=== PATIENT | female | born 1935 | race Caucasian/White ===

== ENCOUNTER 2017-01-26 02:31 | Inpatient (IN) ==
[2017-01-26] MEDS ORDERED: ALBUTEROL/IPRATROPIUM 3 ML NEB RESP TX STA (02:37)
[2017-01-26] MEDS ORDERED: FUROSEMIDE 40 MG/4 ML VIAL IV STA (02:47)
[2017-01-26] MEDS ORDERED: FUROSEMIDE 20 MG/2 ML VIAL ONE (02:49)
[2017-01-26] MEDS ORDERED: FUROSEMIDE 40 MG/4 ML VIAL ONE (02:49)
[2017-01-26] MEDS ORDERED: KETAMINE 500 MG/10 ML VIAL IV STA ×2 (02:52→03:59)
[2017-01-26] MEDS ORDERED: SUCCINYLCHOLINE 200 MG/10 ML VIAL IV STA (02:52)
[2017-01-26] MEDS ORDERED: SUCCINYLCHOLINE 200 MG/10 ML VIAL ONE (02:55)
[2017-01-26] MEDS ORDERED: KETAMINE 500 MG/10 ML VIAL ONE (02:55)
[2017-01-26] MEDS: DOPamine 800 MG/250 ML PREMIX IV SCH (03:40)
[2017-01-26] MEDS ORDERED: ROCURONIUM 100 MG/10 ML VIAL IV ONE (03:52)
[2017-01-26 03:54] LABS: Apearance,Urine Slightly Hazy (Clear); Bacteria,Urine Few /HPF (Few); Bilirubin,Urine Negative (Negative); Blood, Urine Negative (Negative); Glucose,Urine (UA) Negative (Negative); Hyaline Casts,Urine 14 /LPF (0-3); Ketones,Urine Negative (Negative); Mucus,Urine Occasional /LPF (Occasional); Nitrite,Urine Negative (Negative); Protein,Urine 30 MG/DL; RBC,Urine 2 /HPF (0-4); Squamous Epithelial Cell,Urine Occasional /HPF (0-10); Urine Color Yellow (Yellow); Urine Specific Gravity 1.013 (1.001-1.035); Urine Urobilinogen < 2.0 EU/DL (0.2-1.0); WBC,Urine 19 /HPF (0-6)
[2017-01-26] MEDS ORDERED: NOREPINEPHRINE 4 MG/4 ML VIAL IV ONE ×3 (04:01→10:18)
[2017-01-26 04:08] LABS: Basophils # 0.1 10*3/uL (0.0-0.2); Basophils % 0.6 % (0.0-0.8); Eosinophils % 0.1 % (0.00-10.9); Hematocrit 34.4 VOL% (35.7-47.0); Hemoglobin 10.4 GM/DL (12.0-16.0); Immature Granulocytes % 1.3 %; Immature Granulocytes Absolute 0.14 #; Lymphocytes # 0.5 10*3/uL (1.4-4.0); Lymphocytes % 4.6 % (21.3-54.2); Mean Corpuscular HGB Conc 30.2 GM/DL (32-36); Mean Corpuscular Hemoglobin 25 PG (27-34); Mean Corpuscular Volume 83.9 FL (87-102); Mean Platelet Volume 12.3 FL (9.6-12.0); Monocytes # 0.8 10*3/uL (0.11-0.8); Monocytes % 7.2 % (1.7-12.7); Neutrophils # 9.3 10*3/uL (1.4-7.4); Neutrophils % 86.2 % (38.7-73.9); Platelet Count 181 T/CUMM (130-400); Red Cell Distribution Width 17.2 % (9.3-17.3); White Blood Count 10.8 T/CUMM (4-12)
[2017-01-26] MEDS: NOREPINEPHRINE 4 MG in SODIUM CHLORIDE 0.9% 246 ML IV SCH ×2 (04:10→10:30)
[2017-01-26] MEDS ORDERED: MIDAZOLAM 100 MG in SODIUM CHLORIDE 0.9% 80 ML IV SCH (04:30)
[2017-01-26 04:32] LABS: Albumin 3.3 G/DL (3.4-5.0); Bilirubin,Total 0.7 MG/DL (0.2-1.0); Calcium 9.5 MG/DL (8.5-10.1); Potassium 5.7 MMOL/L (3.5-5.1); Total Protein 6.5 G/DL (6.4-8.3); Troponin I Only 0.037 NG/ML (0.00-0.045)
[2017-01-26 06:30] LABS: Burr Cells 2+
[2017-01-26 06:58] LABS: Pt O2 Delivery Device Ventilator
[2017-01-26 07:00] LABS: ABG HCO3 20.7 MMOL/L (20-26); ABG Oxygen Saturation 99.6 % (95-100); ABG PCO2 63.6 MM HG (35-48); ABG PO2 341.3 MM HG (80-95); ABG TCO2 22.6 MMOL/L (23-27)
[2017-01-26] MEDS ORDERED: CEFEPIME 1,000 MG in SODIUM CHLORIDE 0.9% 100 ML IV SCH (07:00)
[2017-01-26] MEDS ORDERED: AZITHROMYCIN 500 MG VIAL IV ONE (07:09)
[2017-01-26] MEDS: AZITHROMYCIN INJ 500 MG in SODIUM CHLORIDE 0.9% 250 ML IV SCH (07:20)
[2017-01-26] MEDS ORDERED: SODIUM POLYSTYRENE SULFATE 15 GM/60 ML BOTTLE PO ONE (10:16)
[2017-01-26] MEDS ORDERED: CEFEPIME 500 MG in SODIUM CHLORIDE 0.9% 50 ML IV SCH (11:00)
[2017-01-26] MEDS ORDERED: CEFEPIME 500 MG in SYRINGE 1 EACH IV SCH (12:00)
[2017-01-26] MEDS: PROPOFOL 1,000 MG/100 ML BOTTLE IV SCH (12:33)
[2017-01-26] MEDS ORDERED: PROPOFOL 1,000 MG/100 ML BOTTLE IV ONE (12:43)
[2017-01-26] MEDS: SODIUM BICARB INJ 50 MEQ in SODIUM CHLORIDE 0.45% 1,000 ML IV SCH ×2 (15:03→23:49)
[2017-01-26] MEDS: CEFEPIME 500 MG in SODIUM CHLORIDE 0.9% 50 ML IV SCH (15:04)
[2017-01-27] MEDS: CEFEPIME 500 MG in SODIUM CHLORIDE 0.9% 50 ML IV SCH ×2 (01:14→13:35)
[2017-01-27] MEDS: SODIUM BICARB INJ 50 MEQ in SODIUM CHLORIDE 0.45% 1,000 ML IV SCH ×2 (01:14→14:31)
[2017-01-27] MEDS: PROPOFOL 1,000 MG/100 ML BOTTLE IV SCH ×2 (01:15→15:30)
[2017-01-27 04:15] LABS: ABG Base Excess -2.2 MMOL/L (-2.5-2.5); ABG HCO3 21.6 MMOL/L (20-26); ABG Oxygen Saturation 98.6 % (95-100); ABG PCO2 33.2 MM HG (35-48); ABG PH 7.431 (7.35-7.45); ABG PO2 139.2 MM HG (80-95); ABG TCO2 22.6 MMOL/L (23-27); Allen Test Positive; Pt O2 Delivery Device Ventilator
[2017-01-27] MEDS: DOPamine 800 MG/250 ML PREMIX IV SCH (05:02)
[2017-01-27] MEDS: NOREPINEPHRINE 4 MG in SODIUM CHLORIDE 0.9% 246 ML IV SCH (05:02)
[2017-01-27 05:51] LABS: Calcium 8.4 MG/DL (8.5-10.1); Osmolality,Calculated 289.3 MOS/KG (273-304); Potassium 3.9 MMOL/L (3.5-5.1)
[2017-01-27] MEDS: AZITHROMYCIN INJ 500 MG in SODIUM CHLORIDE 0.9% 250 ML IV SCH (06:19)
[2017-01-27 12:10] LABS: Troponin I Only 0.044 NG/ML (0.00-0.045)
[2017-01-27] MEDS: ENOXAPARIN 30 MG/0.3 ML SYRINGE SUBCUT SCH (13:35)
[2017-01-27] MEDS: ASPIRIN EC 81 MG TABLET PO SCH (13:35)
[2017-01-28] MEDS: PROPOFOL 1,000 MG/100 ML BOTTLE IV SCH ×2 (00:03→13:18)
[2017-01-28] MEDS: CEFEPIME 500 MG in SODIUM CHLORIDE 0.9% 50 ML IV SCH ×2 (00:11→12:30)
[2017-01-28] MEDS: SODIUM BICARB INJ 50 MEQ in SODIUM CHLORIDE 0.45% 1,000 ML IV SCH (04:30)
[2017-01-28] MEDS: DOPamine 800 MG/250 ML PREMIX IV SCH (04:32)
[2017-01-28] MEDS: NOREPINEPHRINE 4 MG in SODIUM CHLORIDE 0.9% 246 ML IV SCH (04:33)
[2017-01-28 04:35] LABS: ABG Base Excess 1.9 MMOL/L (-2.5-2.5); ABG HCO3 26.1 MMOL/L (20-26); ABG Oxygen Saturation 98.7 % (95-100); ABG PCO2 33.7 MM HG (35-48); ABG PH 7.481 (7.35-7.45); ABG TCO2 23.3 MMOL/L (23-27); Allen Test Positive; Pt O2 Delivery Device Ventilator
[2017-01-28 04:47] LABS: Basophils # 0.1 10*3/uL (0.0-0.2); Basophils % 0.5 % (0.0-0.8); Eosinophils % 0.2 % (0.00-10.9); Hematocrit 28.5 VOL% (35.7-47.0); Hemoglobin 9.2 GM/DL (12.0-16.0); Immature Granulocytes % 0.5 %; Immature Granulocytes Absolute 0.06 #; Lymphocytes # 1.4 10*3/uL (1.4-4.0); Lymphocytes % 12.3 % (21.3-54.2); Mean Corpuscular HGB Conc 32.3 GM/DL (32-36); Mean Corpuscular Hemoglobin 25 PG (27-34); Mean Corpuscular Volume 78.5 FL (87-102); Mean Platelet Volume 12.5 FL (9.6-12.0); Monocytes % 9.4 % (1.7-12.7); Neutrophils # 8.5 10*3/uL (1.4-7.4); Neutrophils % 77.1 % (38.7-73.9); Platelet Count 134 T/CUMM (130-400); Red Blood Count 3.63 MC/CUMM (3.8-5.5); Red Cell Distribution Width 17.2 % (9.3-17.3)
[2017-01-28] MEDS: AZITHROMYCIN INJ 500 MG in SODIUM CHLORIDE 0.9% 250 ML IV SCH (06:24)
[2017-01-28] MEDS: ASPIRIN EC 81 MG TABLET PO SCH (09:17)
[2017-01-28 09:30] LABS: Calcium 7.9 MG/DL (8.5-10.1); Magnesium 1.8 MG/DL (1.8-2.4); Risk Ratio 3.3; VLDL CHOLESTEROL 20.2 MG/DL
[2017-01-28 09:32] LABS: Potassium 2.5 MMOL/L (3.5-5.1)
[2017-01-28] MEDS ORDERED: ONDANSETRON 4 MG/2 ML VIAL ONE (10:11)
[2017-01-28] MEDS ORDERED: DEXTROSE 50% 25 GM/50 ML VIAL IV ONE ×2 (10:20→10:21)
[2017-01-28] MEDS: ONDANSETRON 4 MG/2 ML VIAL IV PRN (10:30)
[2017-01-28] MEDS ORDERED: POTASSIUM CHLORIDE 20 MEQ TABLET PO ONE (10:41)
[2017-01-28] MEDS ORDERED: POTASSIUM CHLORIDE INJ 10 MEQ in DEXTROSE 5% 1,000 ML IV SCH (12:00)
[2017-01-28] MEDS ORDERED: POTASSIUM CHLORIDE IV SCH (12:30)
[2017-01-28] MEDS ORDERED: SODIUM BICARB IV SCH (12:30)
[2017-01-28] MEDS ORDERED: [UNRECOGNIZED DRUG - OTHER] IV SCH (12:30)
[2017-01-28] MEDS: ENOXAPARIN 30 MG/0.3 ML SYRINGE SUBCUT SCH (12:35)
[2017-01-28] MEDS ORDERED: MAGNESIUM SULF RIDER 2 GM in PREMIX 1 EACH IV ONE (12:53)
[2017-01-28] MEDS ORDERED: MAGNESIUM SULF RIDER 2 GM in PREMIX 1 EACH IV PRN (14:15)
[2017-01-28] MEDS: ATORVASTATIN 10 MG TABLET PO SCH (20:56)
[2017-01-29] MEDS: CEFEPIME 500 MG in SODIUM CHLORIDE 0.9% 50 ML IV SCH ×2 (00:22→11:41)
[2017-01-29] MEDS: NOREPINEPHRINE 4 MG in SODIUM CHLORIDE 0.9% 246 ML IV SCH (03:05)
[2017-01-29] MEDS: PROPOFOL 1,000 MG/100 ML BOTTLE IV SCH ×2 (03:05→11:41)
[2017-01-29] MEDS: DOPamine 800 MG/250 ML PREMIX IV SCH (03:05)
[2017-01-29 03:16] LABS: ABG Base Excess 4.5 MMOL/L (-2.5-2.5); ABG HCO3 28.5 MMOL/L (20-26); ABG Oxygen Saturation 99.6 % (95-100); ABG PCO2 36.3 MM HG (35-48); ABG PH 7.493 (7.35-7.45); ABG TCO2 25.4 MMOL/L (23-27)
[2017-01-29 05:26] LABS: Basophils % 0.3 % (0.0-0.8); Eosinophils % 0.4 % (0.00-10.9); Hematocrit 29.4 VOL% (35.7-47.0); Hemoglobin 9.3 GM/DL (12.0-16.0); Immature Granulocytes % 0.4 %; Immature Granulocytes Absolute 0.04 #; Lymphocytes % 11.3 % (21.3-54.2); Mean Corpuscular HGB Conc 31.6 GM/DL (32-36); Mean Corpuscular Hemoglobin 25 PG (27-34); Mean Corpuscular Volume 79.7 FL (87-102); Mean Platelet Volume 11.8 FL (9.6-12.0); Monocytes % 11.2 % (1.7-12.7); Neutrophils % 76.4 % (38.7-73.9); Platelet Count 125 T/CUMM (130-400); Red Blood Count 3.69 MC/CUMM (3.8-5.5); Red Cell Distribution Width 17.3 % (9.3-17.3); White Blood Count 9.2 T/CUMM (4-12)
[2017-01-29 05:55] LABS: Phosphorous 2.1 MG/DL (2.5-4.9)
[2017-01-29] MEDS ORDERED: DEXT 5% NACL 0.45% KCL 20 MEQ 20 MEQ/1,000 ML BAG IV SCH (06:00)
[2017-01-29] MEDS: AZITHROMYCIN INJ 500 MG in SODIUM CHLORIDE 0.9% 250 ML IV SCH (06:09)
[2017-01-29 06:19] LABS: Calcium 8.1 MG/DL (8.5-10.1); Magnesium 2.3 MG/DL (1.8-2.4); Osmolality,Calculated 295.1 MOS/KG (273-304); Potassium 2.7 MMOL/L (3.5-5.1)
[2017-01-29] MEDS: POTASSIUM CHLORIDE RIDER 20 MEQ in PREMIX 1 EACH IV PRN ×2 (08:39→10:55)
[2017-01-29] MEDS: ASPIRIN EC 81 MG TABLET PO SCH (08:40)
[2017-01-29] MEDS: ENOXAPARIN 30 MG/0.3 ML SYRINGE SUBCUT SCH (12:56)
[2017-01-29] MEDS: POTASSIUM CHLORIDE RIDER 10 MEQ in PREMIX 1 EACH IV PRN (12:56)
[2017-01-29] MEDS ORDERED: POTASSIUM CHLORIDE 20 MEQ TABLET PO ONE (15:53)
[2017-01-29] MEDS ORDERED: DEXTROSE 50% 25 GM/50 ML VIAL IV PRN (15:59)
[2017-01-29] MEDS ORDERED: GLUCAGON 1 MG VIAL IM PRN (16:00)
[2017-01-29] MEDS ORDERED: FUROSEMIDE 40 MG/4 ML VIAL IV ONE (16:07)
[2017-01-29] MEDS: INSULIN REGULAR 100 UNIT/ML SUBCUT SCH (17:57)
[2017-01-29] MEDS: ATORVASTATIN 10 MG TABLET PO SCH (21:24)
[2017-01-30] MEDS: INSULIN REGULAR 100 UNIT/ML SUBCUT SCH ×4 (00:47→18:02)
[2017-01-30] MEDS: CEFEPIME 500 MG in SODIUM CHLORIDE 0.9% 50 ML IV SCH ×2 (00:47→13:04)
[2017-01-30 03:31] LABS: ABG HCO3 28.5 MMOL/L (20-26); ABG Oxygen Saturation 98.7 % (95-100); ABG PCO2 37.9 MM HG (35-48); ABG PH 7.494 (7.35-7.45); ABG PO2 153.5 MM HG (80-95); ABG TCO2 29.7 MMOL/L (23-27); Allen Test Positive; Pt O2 Delivery Device Ventilator
[2017-01-30 05:54] LABS: Basophils % 0.5 % (0.0-0.8); Eosinophils # 0.1 10*3/uL (0.0-0.87); Eosinophils % 1.6 % (0.00-10.9); Hematocrit 29.6 VOL% (35.7-47.0); Hemoglobin 9.4 GM/DL (12.0-16.0); Immature Granulocytes % 0.5 %; Immature Granulocytes Absolute 0.04 #; Lymphocytes # 1.4 10*3/uL (1.4-4.0); Lymphocytes % 17.6 % (21.3-54.2); Mean Corpuscular HGB Conc 31.8 GM/DL (32-36); Mean Corpuscular Hemoglobin 26 PG (27-34); Mean Corpuscular Volume 80.2 FL (87-102); Monocytes # 1.1 10*3/uL (0.11-0.8); Monocytes % 13.4 % (1.7-12.7); Neutrophils # 5.4 10*3/uL (1.4-7.4); Neutrophils % 66.4 % (38.7-73.9); Platelet Count 134 T/CUMM (130-400); Red Blood Count 3.69 MC/CUMM (3.8-5.5); Red Cell Distribution Width 17.2 % (9.3-17.3); White Blood Count 8.1 T/CUMM (4-12)
[2017-01-30 06:22] LABS: Calcium 8.5 MG/DL (8.5-10.1); Magnesium 1.9 MG/DL (1.8-2.4); Osmolality,Calculated 293.8 MOS/KG (273-304); Potassium 3.7 MMOL/L (3.5-5.1)
[2017-01-30] MEDS: PROPOFOL 1,000 MG/100 ML BOTTLE IV SCH (07:00)
[2017-01-30] MEDS: POTASSIUM CHLORIDE RIDER 20 MEQ in PREMIX 1 EACH IV PRN (07:01)
[2017-01-30] MEDS: AZITHROMYCIN INJ 500 MG in SODIUM CHLORIDE 0.9% 250 ML IV SCH (07:01)
[2017-01-30] MEDS: ASPIRIN EC 81 MG TABLET PO SCH (09:02)
[2017-01-30] MEDS: NOREPINEPHRINE 4 MG in SODIUM CHLORIDE 0.9% 246 ML IV SCH (09:03)
[2017-01-30] MEDS: DOPamine 800 MG/250 ML PREMIX IV SCH (09:04)
[2017-01-30] MEDS: ONDANSETRON 4 MG/2 ML VIAL IV PRN ×2 (10:21→15:34)
[2017-01-30] MEDS: ENOXAPARIN 30 MG/0.3 ML SYRINGE SUBCUT SCH (12:16)
[2017-01-30] MEDS: hydrALAZINE 25 MG TABLET PO SCH ×2 (15:34→21:01)
[2017-01-30] MEDS: ATORVASTATIN 10 MG TABLET PO SCH (21:01)
[2017-01-31] MEDS: INSULIN REGULAR 100 UNIT/ML SUBCUT SCH ×4 (00:51→18:45)
[2017-01-31] MEDS: CEFEPIME 500 MG in SODIUM CHLORIDE 0.9% 50 ML IV SCH (00:52)
[2017-01-31 04:55] LABS: Basophils % 0.5 % (0.0-0.8); Eosinophils # 0.2 10*3/uL (0.0-0.87); Hemoglobin 8.9 GM/DL (12.0-16.0); Immature Granulocytes % 0.5 %; Immature Granulocytes Absolute 0.04 #; Lymphocytes # 1.3 10*3/uL (1.4-4.0); Lymphocytes % 17.2 % (21.3-54.2); Mean Corpuscular HGB Conc 30.7 GM/DL (32-36); Mean Corpuscular Hemoglobin 25 PG (27-34); Mean Corpuscular Volume 82.2 FL (87-102); Mean Platelet Volume 12.5 FL (9.6-12.0); Monocytes # 1.1 10*3/uL (0.11-0.8); Monocytes % 14.5 % (1.7-12.7); Neutrophils % 65.3 % (38.7-73.9); Platelet Count 122 T/CUMM (130-400); Red Blood Count 3.53 MC/CUMM (3.8-5.5); Red Cell Distribution Width 17.2 % (9.3-17.3); White Blood Count 7.7 T/CUMM (4-12)
[2017-01-31 05:46] LABS: Calcium 8.1 MG/DL (8.5-10.1); Magnesium 1.7 MG/DL (1.8-2.4); Osmolality,Calculated 292.1 MOS/KG (273-304); Potassium 3.8 MMOL/L (3.5-5.1)
[2017-01-31] MEDS: DOPamine 800 MG/250 ML PREMIX IV SCH (05:57)
[2017-01-31] MEDS: NOREPINEPHRINE 4 MG in SODIUM CHLORIDE 0.9% 246 ML IV SCH (05:57)
[2017-01-31] MEDS: PROPOFOL 1,000 MG/100 ML BOTTLE IV SCH (06:26)
[2017-01-31] MEDS: AZITHROMYCIN INJ 500 MG in SODIUM CHLORIDE 0.9% 250 ML IV SCH (06:26)
[2017-01-31 07:22] LABS: ABG Base Excess 5.4 MMOL/L (-2.5-2.5); ABG HCO3 29.8 MMOL/L (20-26); ABG Oxygen Saturation 98.8 % (95-100); ABG PCO2 42.8 MM HG (35-48); ABG TCO2 31.1 MMOL/L (23-27)
[2017-01-31] MEDS ORDERED: FUROSEMIDE 40 MG/4 ML VIAL IV ONE (08:09)
[2017-01-31] MEDS: ASPIRIN EC 81 MG TABLET PO SCH (08:46)
[2017-01-31] MEDS: hydrALAZINE 25 MG TABLET PO SCH ×3 (08:46→21:32)
[2017-01-31] MEDS: CEFEPIME 1,000 MG in SYRINGE 1 EACH IV SCH ×2 (11:14→18:46)
[2017-01-31] MEDS: ISOSORBIDE MONONITRATE 30 MG TABLET PO SCH (11:22)
[2017-01-31] MEDS: ENOXAPARIN 30 MG/0.3 ML SYRINGE SUBCUT SCH (15:05)
[2017-01-31] MEDS: ATORVASTATIN 10 MG TABLET PO SCH (21:32)
[2017-01-31] MEDS: ZALEPLON 5 MG CAPSULE PO PRN (21:50)
[2017-02-01] MEDS: INSULIN REGULAR 100 UNIT/ML SUBCUT SCH ×2 (00:45→07:27)
[2017-02-01] MEDS: CEFEPIME 1,000 MG in SYRINGE 1 EACH IV SCH ×3 (02:50→17:50)
[2017-02-01 03:07] LABS: Basophils # 0.1 10*3/uL (0.0-0.2); Basophils % 0.6 % (0.0-0.8); Eosinophils # 0.3 10*3/uL (0.0-0.87); Eosinophils % 3.4 % (0.00-10.9); Hematocrit 27.8 VOL% (35.7-47.0); Hemoglobin 8.4 GM/DL (12.0-16.0); Immature Granulocytes % 0.5 %; Immature Granulocytes Absolute 0.04 #; Lymphocytes # 1.8 10*3/uL (1.4-4.0); Lymphocytes % 22.1 % (21.3-54.2); Mean Corpuscular HGB Conc 30.2 GM/DL (32-36); Mean Corpuscular Hemoglobin 25 PG (27-34); Mean Corpuscular Volume 82.7 FL (87-102); Mean Platelet Volume 12.1 FL (9.6-12.0); Monocytes % 12.6 % (1.7-12.7); Neutrophils % 60.8 % (38.7-73.9); Platelet Count 120 T/CUMM (130-400); Red Blood Count 3.36 MC/CUMM (3.8-5.5); Red Cell Distribution Width 17.2 % (9.3-17.3); White Blood Count 8.2 T/CUMM (4-12)
[2017-02-01 03:31] LABS: Calcium 8.4 MG/DL (8.5-10.1); Osmolality,Calculated 284.3 MOS/KG (273-304); Potassium 3.4 MMOL/L (3.5-5.1)
[2017-02-01] MEDS: NOREPINEPHRINE 4 MG in SODIUM CHLORIDE 0.9% 246 ML IV SCH (05:04)
[2017-02-01] MEDS: DOPamine 800 MG/250 ML PREMIX IV SCH (05:04)
[2017-02-01] MEDS: POTASSIUM CHLORIDE RIDER 20 MEQ in PREMIX 1 EACH IV PRN (06:24)
[2017-02-01] MEDS: POTASSIUM CHLORIDE RIDER 10 MEQ in PREMIX 1 EACH IV PRN (08:31)
[2017-02-01] MEDS: ASPIRIN EC 81 MG TABLET PO SCH (08:37)
[2017-02-01] MEDS: hydrALAZINE 25 MG TABLET PO SCH ×3 (08:37→22:08)
[2017-02-01] MEDS: ISOSORBIDE MONONITRATE 30 MG TABLET PO SCH (08:38)
[2017-02-01] MEDS: POTASSIUM CHLORIDE 10 MEQ TABLET PO SCH ×2 (10:27→22:08)
[2017-02-01] MEDS: FUROSEMIDE 20 MG TABLET PO SCH (10:27)
[2017-02-01] MEDS ORDERED: POTASSIUM CHLORIDE 20 MEQ TABLET PO ONE (10:53)
[2017-02-01 11:19] LABS: % Iron Saturation 11.9 % (18-50); Ferritin 75.1 ng/ml (8-252)
[2017-02-01] MEDS ORDERED: CELECOXIB 200 MG CAPSULE PO SCH (16:14)
[2017-02-01] MEDS: ENOXAPARIN 30 MG/0.3 ML SYRINGE SUBCUT SCH (16:20)
[2017-02-01] MEDS: PANTOPRAZOLE 40 MG TABLET PO SCH (16:20)
[2017-02-01] MEDS: PROPOFOL 1,000 MG/100 ML BOTTLE IV SCH (18:27)
[2017-02-01] MEDS: ONDANSETRON 4 MG/2 ML VIAL IV PRN (20:30)
[2017-02-01] MEDS: ATORVASTATIN 10 MG TABLET PO SCH (22:08)
[2017-02-01] MEDS: CELECOXIB 200 MG CAPSULE PO SCH (22:08)
[2017-02-01] MEDS: ZALEPLON 5 MG CAPSULE PO PRN (22:08)
[2017-02-02] MEDS: CEFEPIME 1,000 MG in SYRINGE 1 EACH IV SCH ×3 (03:21→22:47)
[2017-02-02 03:34] LABS: ABG Base Excess 8.1 MMOL/L (-2.5-2.5); ABG HCO3 31.9 MMOL/L (20-26); ABG Oxygen Saturation 99.3 % (95-100); ABG PCO2 48.4 MM HG (35-48); ABG PH 7.445 (7.35-7.45); ABG TCO2 30.9 MMOL/L (23-27)
[2017-02-02] MEDS: NOREPINEPHRINE 4 MG in SODIUM CHLORIDE 0.9% 246 ML IV SCH (03:57)
[2017-02-02 05:21] LABS: Basophils # 0.1 10*3/uL (0.0-0.2); Basophils % 0.7 % (0.0-0.8); Eosinophils # 0.2 10*3/uL (0.0-0.87); Eosinophils % 2.4 % (0.00-10.9); Hematocrit 26.4 VOL% (35.7-47.0); Hemoglobin 8.2 GM/DL (12.0-16.0); Immature Granulocytes % 0.6 %; Immature Granulocytes Absolute 0.05 #; Lymphocytes # 1.9 10*3/uL (1.4-4.0); Lymphocytes % 21.9 % (21.3-54.2); Mean Corpuscular HGB Conc 31.1 GM/DL (32-36); Mean Corpuscular Hemoglobin 25 PG (27-34); Mean Corpuscular Volume 81.2 FL (87-102); Mean Platelet Volume 12.4 FL (9.6-12.0); Monocytes # 1.2 10*3/uL (0.11-0.8); Monocytes % 13.6 % (1.7-12.7); Neutrophils # 5.2 10*3/uL (1.4-7.4); Neutrophils % 60.8 % (38.7-73.9); Platelet Count 120 T/CUMM (130-400); Red Blood Count 3.25 MC/CUMM (3.8-5.5); White Blood Count 8.5 T/CUMM (4-12)
[2017-02-02 05:38] LABS: Calcium 8.3 MG/DL (8.5-10.1); Magnesium 1.3 MG/DL (1.8-2.4); Osmolality,Calculated 279.5 MOS/KG (273-304); Potassium 3.7 MMOL/L (3.5-5.1)
[2017-02-02] MEDS ORDERED: KETOROLAC 30 MG/1 ML VIAL IV ONE (09:45)
[2017-02-02] MEDS: PANTOPRAZOLE 40 MG TABLET PO SCH (10:07)
[2017-02-02] MEDS: FUROSEMIDE 20 MG TABLET PO SCH ×2 (10:07→16:15)
[2017-02-02] MEDS: ASPIRIN EC 81 MG TABLET PO SCH (10:08)
[2017-02-02] MEDS: CELECOXIB 200 MG CAPSULE PO SCH ×2 (10:08→22:47)
[2017-02-02] MEDS: hydrALAZINE 25 MG TABLET PO SCH ×3 (10:08→22:47)
[2017-02-02] MEDS: ISOSORBIDE MONONITRATE 30 MG TABLET PO SCH (10:08)
[2017-02-02] MEDS: POTASSIUM CHLORIDE 10 MEQ TABLET PO SCH ×2 (10:08→22:47)
[2017-02-02] MEDS: MAGNESIUM SULF RIDER 4 GM in PREMIX 1 EACH IV PRN (13:31)
[2017-02-02] MEDS: IRON (CARBONYL) 45 MG TABLET PO SCH ×2 (14:00→22:47)
[2017-02-02] MEDS: ENOXAPARIN 30 MG/0.3 ML SYRINGE SUBCUT SCH (14:17)
[2017-02-02] MEDS: ZINC OXIDE PASTE 113 GM TUBE TOP SCH (22:00)
[2017-02-02] MEDS: MAGNESIUM CHLORIDE 64 MG TABLET PO SCH (22:47)
[2017-02-02] MEDS: ATORVASTATIN 10 MG TABLET PO SCH (22:47)
[2017-02-03 05:27] LABS: Basophils # 0.1 10*3/uL (0.0-0.2); Basophils % 0.6 % (0.0-0.8); Eosinophils # 0.2 10*3/uL (0.0-0.87); Eosinophils % 1.8 % (0.00-10.9); Immature Granulocytes % 0.5 %; Immature Granulocytes Absolute 0.05 #; Lymphocytes # 1.7 10*3/uL (1.4-4.0); Lymphocytes % 18.2 % (21.3-54.2); Mean Corpuscular HGB Conc 30.8 GM/DL (32-36); Mean Corpuscular Hemoglobin 25 PG (27-34); Monocytes # 1.1 10*3/uL (0.11-0.8); Monocytes % 11.6 % (1.7-12.7); Neutrophils # 6.3 10*3/uL (1.4-7.4); Neutrophils % 67.3 % (38.7-73.9); Platelet Count 143 T/CUMM (130-400); Red Blood Count 3.25 MC/CUMM (3.8-5.5); Red Cell Distribution Width 16.8 % (9.3-17.3); White Blood Count 9.4 T/CUMM (4-12)
[2017-02-03 05:46] LABS: Calcium 8.8 MG/DL (8.5-10.1); Osmolality,Calculated 275.8 MOS/KG (273-304); Potassium 3.8 MMOL/L (3.5-5.1)
[2017-02-03 06:30] LABS: Phosphorous 2.6 MG/DL (2.5-4.9); Prealbumin 10.1 MG/DL (20-40)
[2017-02-03] MEDS: NOREPINEPHRINE 4 MG in SODIUM CHLORIDE 0.9% 246 ML IV SCH (07:35)
[2017-02-03] MEDS: CEFEPIME 1,000 MG in SYRINGE 1 EACH IV SCH ×3 (07:35→21:23)
[2017-02-03] MEDS: FUROSEMIDE 20 MG TABLET PO SCH ×2 (09:57→16:33)
[2017-02-03] MEDS: CELECOXIB 200 MG CAPSULE PO SCH (09:57)
[2017-02-03] MEDS: PANTOPRAZOLE 40 MG TABLET PO SCH (09:57)
[2017-02-03] MEDS: ISOSORBIDE MONONITRATE 30 MG TABLET PO SCH (09:57)
[2017-02-03] MEDS: ASPIRIN EC 81 MG TABLET PO SCH (09:57)
[2017-02-03] MEDS: MAGNESIUM CHLORIDE 64 MG TABLET PO SCH ×2 (09:57→21:22)
[2017-02-03] MEDS: POTASSIUM CHLORIDE 10 MEQ TABLET PO SCH ×2 (09:57→21:23)
[2017-02-03] MEDS: hydrALAZINE 25 MG TABLET PO SCH ×3 (09:57→21:22)
[2017-02-03] MEDS: IRON (CARBONYL) 45 MG TABLET PO SCH ×2 (09:59→21:23)
[2017-02-03] MEDS: ZINC OXIDE PASTE 113 GM TUBE TOP SCH ×2 (10:01→21:23)
[2017-02-03] MEDS ORDERED: SODIUM CHLORIDE 0.9% 1,000 ML IV PRN (11:13)
[2017-02-03] MEDS ORDERED: MAGNESIUM SULF RIDER 4 GM in PREMIX 1 EACH IV PRN (11:44)
[2017-02-03] MEDS ORDERED: MAGNESIUM SULF RIDER 2 GM in PREMIX 1 EACH IV PRN (11:44)
[2017-02-03] MEDS: VALSARTAN 80 MG TABLET PO SCH (12:25)
[2017-02-03] MEDS: ONDANSETRON 4 MG/2 ML VIAL IV PRN (13:00)
[2017-02-03] MEDS ORDERED: VERAPAMIL 80 MG TABLET PO SCH (15:00)
[2017-02-03] MEDS: CARVEDILOL 6.25 MG TABLET PO SCH (21:23)
[2017-02-04] MEDS: CEFEPIME 1,000 MG in SYRINGE 1 EACH IV SCH (06:35)
[2017-02-04 07:28] LABS: Hematocrit 36.9 VOL% (35.7-47.0)
[2017-02-04 07:40] LABS: Hemoglobin 11.9 GM/DL (12.0-16.0)
[2017-02-04 09:55] LABS: Basophils # 0.1 10*3/uL (0.0-0.2); Basophils % 0.9 % (0.0-0.8); Eosinophils # 0.2 10*3/uL (0.0-0.87); Eosinophils % 1.7 % (0.00-10.9); Hematocrit 35.9 VOL% (35.7-47.0); Hemoglobin 11.5 GM/DL (12.0-16.0); Immature Granulocytes % 0.7 %; Immature Granulocytes Absolute 0.06 #; Lymphocytes # 1.4 10*3/uL (1.4-4.0); Lymphocytes % 16.1 % (21.3-54.2); Mean Corpuscular Hemoglobin 26 PG (27-34); Mean Corpuscular Volume 81.8 FL (87-102); Mean Platelet Volume 11.9 FL (9.6-12.0); Monocytes % 11.3 % (1.7-12.7); Neutrophils % 69.3 % (38.7-73.9); Platelet Count 170 T/CUMM (130-400); Red Blood Count 4.39 MC/CUMM (3.8-5.5); Red Cell Distribution Width 16.4 % (9.3-17.3); White Blood Count 8.7 T/CUMM (4-12)
[2017-02-04] MEDS: VALSARTAN 80 MG TABLET PO SCH (09:55)
[2017-02-04] MEDS: ISOSORBIDE MONONITRATE 30 MG TABLET PO SCH (09:55)
[2017-02-04] MEDS: hydrALAZINE 25 MG TABLET PO SCH ×3 (09:55→21:27)
[2017-02-04] MEDS: MAGNESIUM CHLORIDE 64 MG TABLET PO SCH ×2 (09:55→21:27)
[2017-02-04] MEDS: POTASSIUM CHLORIDE 10 MEQ TABLET PO SCH ×2 (09:55→21:27)
[2017-02-04] MEDS: IRON (CARBONYL) 45 MG TABLET PO SCH ×2 (09:56→21:29)
[2017-02-04] MEDS: CARVEDILOL 6.25 MG TABLET PO SCH ×2 (09:56→16:39)
[2017-02-04] MEDS: PANTOPRAZOLE 40 MG TABLET PO SCH (09:56)
[2017-02-04] MEDS: FUROSEMIDE 20 MG TABLET PO SCH ×2 (09:56→16:07)
[2017-02-04] MEDS: ASPIRIN EC 81 MG TABLET PO SCH (09:56)
[2017-02-04] MEDS: ZINC OXIDE PASTE 113 GM TUBE TOP SCH ×2 (09:57→21:27)
[2017-02-04 10:31] LABS: Calcium 8.9 MG/DL (8.5-10.1); Magnesium 1.7 MG/DL (1.8-2.4); Osmolality,Calculated 276.1 MOS/KG (273-304); Potassium 3.8 MMOL/L (3.5-5.1)
[2017-02-04] MEDS: ZALEPLON 5 MG CAPSULE PO PRN (21:27)
[2017-02-05 06:37] LABS: Calcium 9.2 MG/DL (8.5-10.1); Magnesium 1.4 MG/DL (1.8-2.4); Osmolality,Calculated 279.7 MOS/KG (273-304); Potassium 3.9 MMOL/L (3.5-5.1)
[2017-02-05] MEDS: MAGNESIUM CHLORIDE 64 MG TABLET PO SCH (08:57)
[2017-02-05] MEDS: FUROSEMIDE 20 MG TABLET PO SCH (08:57)
[2017-02-05] MEDS: CARVEDILOL 6.25 MG TABLET PO SCH (08:57)
[2017-02-05] MEDS: IRON (CARBONYL) 45 MG TABLET PO SCH (08:57)
[2017-02-05] MEDS: VALSARTAN 80 MG TABLET PO SCH (08:57)
[2017-02-05] MEDS: ISOSORBIDE MONONITRATE 30 MG TABLET PO SCH (08:57)
[2017-02-05] MEDS: PANTOPRAZOLE 40 MG TABLET PO SCH (08:58)
[2017-02-05] MEDS: POTASSIUM CHLORIDE 10 MEQ TABLET PO SCH (08:58)
[2017-02-05] MEDS: ASPIRIN EC 81 MG TABLET PO SCH (08:58)
[2017-02-05] MEDS: hydrALAZINE 25 MG TABLET PO SCH (08:58)
[2017-02-05] MEDS: ZINC OXIDE PASTE 113 GM TUBE TOP SCH (08:58)
[2017-02-05] MEDS: MAGNESIUM SULF RIDER 4 GM in PREMIX 1 EACH IV PRN (10:41)
[2017-02-05] MEDS ORDERED: ALBUTEROL/IPRATROPIUM 3 ML NEB RESP TX SCH (13:00)
[2017-02-05 14:03] VITALS: BP 128/67
== END 2017-02-05 15:40 | disposition swing bed (61) | DRG 207 ==
LOC: EDUNIT# → N.ED 02:31 → N.EDINP 05:10 → N.CC 09:55 → N.TELES 02-01 18:17
PROVIDERS: ADMIT Internal Medicine; ATTEND Internal Medicine

== ENCOUNTER 2018-06-25 09:30 | Inpatient (IN) ==
[2018-06-25] MEDS ORDERED: SODIUM CHLORIDE 0.9% 500 ML IV STA (10:00)
[2018-06-25 10:15] LABS: Apearance,Urine CLOUDY (Clear); Bacteria,Urine Many /HPF (Few); Bilirubin,Urine Negative (Negative); Blood, Urine Large mg/dL (Negative); Glucose,Urine (UA) Negative (Negative); Ketones,Urine Negative (Negative); Mucus,Urine Moderate /LPF (Occasional); Nitrite,Urine Positive (Negative); Protein,Urine 30 MG/DL; RBC,Urine 36 /HPF (0-4); Squamous Epithelial Cell,Urine Occasional /HPF (0-10); Urine Color Amber (Yellow); Urine Specific Gravity 1.015 (1.001-1.035); Urine Urobilinogen < 2.0 EU/DL (0.2-1.0); WBC,Urine 1757 /HPF (0-6)
[2018-06-25] MEDS ORDERED: cefTRIAXone 1,000 MG in SODIUM CHLORIDE 0.9% 100 ML IV STA (10:23)
[2018-06-25 10:31] LABS: Basophils % 0.6 % (0.0-0.8); Eosinophils # 0.1 10*3/uL (0.0-0.87); Hematocrit 30.6 VOL% (35.7-47.0); Hemoglobin 9.5 GM/DL (12.0-16.0); Immature Granulocytes % 0.4 %; Immature Granulocytes Absolute 0.03 #; Lymphocytes # 2.1 10*3/uL (1.4-4.0); Lymphocytes % 29.7 % (21.3-54.2); Mean Corpuscular Volume 97.8 FL (87-102); Monocytes % 9.4 % (1.7-12.7); Neutrophils % 57.9 % (38.7-73.9); Platelet Count 116 T/CUMM (130-400); Red Blood Count 3.13 MC/CUMM (3.8-5.5); Red Cell Distribution Width 13.4 % (9.3-17.3); White Blood Count 7.1 T/CUMM (4-12)
[2018-06-25 10:47] LABS: Calcium 8.9 MG/DL (8.5-10.1); Osmolality,Calculated 291.7 MOS/KG (273-304)
[2018-06-25] MEDS ORDERED: ONDANSETRON 4 MG/2 ML VIAL IV PRN (14:04)
[2018-06-25] MEDS: SODIUM CHLORIDE 0.9% 1,000 ML IV SCH (15:03)
[2018-06-26] MEDS: SODIUM CHLORIDE 0.9% 1,000 ML IV SCH ×2 (04:06→15:27)
[2018-06-26 05:41] LABS: Basophils % 0.7 % (0.0-0.8); Eosinophils # 0.1 10*3/uL (0.0-0.87); Eosinophils % 1.5 % (0.00-10.9); Hematocrit 29.9 VOL% (35.7-47.0); Hemoglobin 9.1 GM/DL (12.0-16.0); Immature Granulocytes % 0.5 %; Immature Granulocytes Absolute 0.03 #; Lymphocytes % 33.3 % (21.3-54.2); Mean Corpuscular HGB Conc 30.4 GM/DL (32-36); Mean Corpuscular Volume 99.7 FL (87-102); Mean Platelet Volume 12.4 FL (9.6-12.0); Monocytes % 10.6 % (1.7-12.7); Neutrophils % 53.4 % (38.7-73.9); Platelet Count 100 T/CUMM (130-400); Red Cell Distribution Width 13.3 % (9.3-17.3); White Blood Count 5.9 T/CUMM (4-12)
[2018-06-26 06:22] LABS: Calcium 8.4 MG/DL (8.5-10.1)
[2018-06-26 06:23] LABS: Osmolality,Calculated 285.7 MOS/KG (273-304); Risk Ratio 2.11; Thyroid Stimulating Hormone 0.327 uIU/ml (0.358-3.74)
[2018-06-26] MEDS: cefTRIAXone 1,000 MG in SYRINGE 1 EACH IV SCH (09:23)
[2018-06-26] MEDS: PANTOPRAZOLE 40 MG TABLET PO SCH (09:23)
[2018-06-26] MEDS: IPRATROPIUM 500 MCG/2.5 ML NEB RESP TX SCH ×2 (15:00→19:37)
[2018-06-26] MEDS: CYANOCOBALAMIN 1000 MCG/1 ML VIAL SUBCUT SCH (15:26)
[2018-06-26] MEDS: CHOLESTYRAMINE/ASPARTAME 4 GM PACK PO SCH (18:09)
[2018-06-26] MEDS: CARVEDILOL 6.25 MG TABLET PO SCH (18:09)
[2018-06-26] MEDS: DOCUSATE SODIUM 100 MG CAPSULE PO SCH (22:06)
[2018-06-26] MEDS: traZODone 50 MG TABLET PO SCH (22:06)
[2018-06-26] MEDS: DONEPEZIL 10 MG TABLET PO SCH (22:06)
[2018-06-26] MEDS: buPROPion 75 MG TABLET PO SCH (22:06)
[2018-06-26] MEDS: MAGNESIUM CHLORIDE 64 MG TABLET PO SCH (22:06)
[2018-06-27] MEDS: SODIUM CHLORIDE 0.9% 1,000 ML IV SCH ×2 (02:36→17:49)
[2018-06-27 05:51] LABS: Basophils # 0.1 10*3/uL (0.0-0.2); Basophils % 0.8 % (0.0-0.8); Eosinophils # 0.1 10*3/uL (0.0-0.87); Eosinophils % 2.2 % (0.00-10.9); Hematocrit 30.2 VOL% (35.7-47.0); Hemoglobin 9.2 GM/DL (12.0-16.0); Immature Granulocytes % 0.3 %; Immature Granulocytes Absolute 0.02 #; Lymphocytes # 2.1 10*3/uL (1.4-4.0); Lymphocytes % 33.4 % (21.3-54.2); Mean Corpuscular HGB Conc 30.5 GM/DL (32-36); Monocytes % 10.8 % (1.7-12.7); Neutrophils % 52.5 % (38.7-73.9); Platelet Count 102 T/CUMM (130-400); Red Blood Count 3.02 MC/CUMM (3.8-5.5); Red Cell Distribution Width 13.2 % (9.3-17.3); White Blood Count 6.4 T/CUMM (4-12)
[2018-06-27 06:17] LABS: Calcium 8.6 MG/DL (8.5-10.1); Osmolality,Calculated 289.8 MOS/KG (273-304)
[2018-06-27 06:47] LABS: Anisocytosis 1+; Hypochromasia Slight; Microcytosis Slight; Platelet Estimate Decreased
[2018-06-27] MEDS: IPRATROPIUM 500 MCG/2.5 ML NEB RESP TX SCH ×4 (07:02→19:43)
[2018-06-27] MEDS ORDERED: ERGOCALCIFEROL 50,000 UNIT CAPSULE PO SCH (09:00)
[2018-06-27] MEDS: VERAPAMIL 80 MG TABLET PO SCH (09:45)
[2018-06-27] MEDS: MAGNESIUM CHLORIDE 64 MG TABLET PO SCH ×2 (09:45→21:45)
[2018-06-27] MEDS: buPROPion 75 MG TABLET PO SCH ×2 (09:45→21:46)
[2018-06-27] MEDS: CARVEDILOL 6.25 MG TABLET PO SCH ×2 (09:45→17:48)
[2018-06-27] MEDS: PANTOPRAZOLE 40 MG TABLET PO SCH (09:45)
[2018-06-27] MEDS: POTASSIUM CHLORIDE 10 MEQ TABLET PO SCH (09:45)
[2018-06-27] MEDS: FLUoxetine 20 MG CAPSULE PO SCH (09:45)
[2018-06-27] MEDS: POLYETHYLENE GLYCOL POWDER 17 GM PACK PO SCH (09:45)
[2018-06-27] MEDS: ASPIRIN EC 81 MG TABLET PO SCH (09:45)
[2018-06-27] MEDS: MONTELUKAST 10 MG TABLET PO SCH (09:45)
[2018-06-27] MEDS: CHOLESTYRAMINE/ASPARTAME 4 GM PACK PO SCH ×2 (09:45→17:47)
[2018-06-27] MEDS: THEOPHYLLINE ER 300 MG TABLET PO SCH (09:45)
[2018-06-27] MEDS: CELECOXIB 200 MG CAPSULE PO SCH (09:45)
[2018-06-27] MEDS: DOCUSATE SODIUM 100 MG CAPSULE PO SCH ×2 (09:45→21:45)
[2018-06-27] MEDS: MEMANTINE 10 MG TABLET PO SCH (09:45)
[2018-06-27] MEDS: cefTRIAXone 1,000 MG in SYRINGE 1 EACH IV SCH (09:46)
[2018-06-27] MEDS: CYANOCOBALAMIN 1000 MCG/1 ML VIAL SUBCUT SCH (09:46)
[2018-06-27] MEDS: FUROSEMIDE 20 MG TABLET PO SCH (12:24)
[2018-06-27] MEDS: traZODone 50 MG TABLET PO SCH (21:45)
[2018-06-27] MEDS: DONEPEZIL 10 MG TABLET PO SCH (21:45)
[2018-06-28 05:00] LABS: Basophils # 0.1 10*3/uL (0.0-0.2); Basophils % 0.7 % (0.0-0.8); Eosinophils # 0.2 10*3/uL (0.0-0.87); Eosinophils % 2.8 % (0.00-10.9); Hemoglobin 9.4 GM/DL (12.0-16.0); Immature Granulocytes % 0.4 %; Immature Granulocytes Absolute 0.03 #; Lymphocytes # 2.6 10*3/uL (1.4-4.0); Lymphocytes % 30.8 % (21.3-54.2); Mean Corpuscular HGB Conc 31.3 GM/DL (32-36); Mean Corpuscular Volume 97.7 FL (87-102); Monocytes % 9.2 % (1.7-12.7); Neutrophils % 56.1 % (38.7-73.9); Platelet Count 108 T/CUMM (130-400); Red Blood Count 3.07 MC/CUMM (3.8-5.5); Red Cell Distribution Width 13.1 % (9.3-17.3); White Blood Count 8.5 T/CUMM (4-12)
[2018-06-28 05:22] LABS: Calcium 8.8 MG/DL (8.5-10.1); Osmolality,Calculated 280.4 MOS/KG (273-304)
[2018-06-28] MEDS: IPRATROPIUM 500 MCG/2.5 ML NEB RESP TX SCH ×4 (07:11→20:03)
[2018-06-28] MEDS: cefTRIAXone 1,000 MG in SYRINGE 1 EACH IV SCH (10:17)
[2018-06-28] MEDS: VERAPAMIL 80 MG TABLET PO SCH (10:18)
[2018-06-28] MEDS: ASPIRIN EC 81 MG TABLET PO SCH (10:18)
[2018-06-28] MEDS: MEMANTINE 10 MG TABLET PO SCH (10:18)
[2018-06-28] MEDS: POTASSIUM CHLORIDE 10 MEQ TABLET PO SCH (10:18)
[2018-06-28] MEDS: FLUoxetine 20 MG CAPSULE PO SCH (10:18)
[2018-06-28] MEDS: MONTELUKAST 10 MG TABLET PO SCH (10:19)
[2018-06-28] MEDS: PANTOPRAZOLE 40 MG TABLET PO SCH (10:19)
[2018-06-28] MEDS: CELECOXIB 200 MG CAPSULE PO SCH (10:19)
[2018-06-28] MEDS: CARVEDILOL 6.25 MG TABLET PO SCH ×2 (10:19→19:12)
[2018-06-28] MEDS: THEOPHYLLINE ER 300 MG TABLET PO SCH (10:19)
[2018-06-28] MEDS: MAGNESIUM CHLORIDE 64 MG TABLET PO SCH ×2 (10:19→20:15)
[2018-06-28] MEDS: POLYETHYLENE GLYCOL POWDER 17 GM PACK PO SCH (12:51)
[2018-06-28] MEDS: CHOLESTYRAMINE/ASPARTAME 4 GM PACK PO SCH ×2 (12:51→19:32)
[2018-06-28] MEDS: DOCUSATE SODIUM 100 MG CAPSULE PO SCH ×2 (12:51→20:15)
[2018-06-28] MEDS ORDERED: CYANOCOBALAMIN 1000 MCG/1 ML VIAL SUBCUT SCH (13:00)
[2018-06-28] MEDS: FUROSEMIDE 20 MG TABLET PO SCH (13:25)
[2018-06-28] MEDS: CYANOCOBALAMIN 1000 MCG/1 ML VIAL SUBCUT SCH (13:25)
[2018-06-28] MEDS: buPROPion 75 MG TABLET PO SCH ×2 (13:26→20:15)
[2018-06-28] MEDS ORDERED: TUBERCULIN SKIN TEST 0.1 ML SYRINGE INTRADERM ONE (16:06)
[2018-06-28] MEDS: SODIUM CHLORIDE 0.9% 1,000 ML IV SCH ×3 (20:12→22:53)
[2018-06-28] MEDS: traZODone 50 MG TABLET PO SCH (20:15)
[2018-06-28] MEDS: DONEPEZIL 10 MG TABLET PO SCH (20:15)
[2018-06-29] MEDS: IPRATROPIUM 500 MCG/2.5 ML NEB RESP TX SCH ×5 (07:20→19:37)
[2018-06-29] MEDS: cefTRIAXone 1,000 MG in SYRINGE 1 EACH IV SCH (08:58)
[2018-06-29] MEDS: CHOLESTYRAMINE/ASPARTAME 4 GM PACK PO SCH ×2 (09:04→16:04)
[2018-06-29] MEDS: POTASSIUM CHLORIDE 10 MEQ TABLET PO SCH (09:05)
[2018-06-29] MEDS: VERAPAMIL 80 MG TABLET PO SCH (09:05)
[2018-06-29] MEDS: CELECOXIB 200 MG CAPSULE PO SCH (09:05)
[2018-06-29] MEDS: ASPIRIN EC 81 MG TABLET PO SCH (09:05)
[2018-06-29] MEDS: PANTOPRAZOLE 40 MG TABLET PO SCH (09:05)
[2018-06-29] MEDS: MAGNESIUM CHLORIDE 64 MG TABLET PO SCH ×2 (09:05→21:42)
[2018-06-29] MEDS: buPROPion 75 MG TABLET PO SCH ×2 (09:05→21:42)
[2018-06-29] MEDS: CARVEDILOL 6.25 MG TABLET PO SCH ×2 (09:05→16:04)
[2018-06-29] MEDS: MEMANTINE 10 MG TABLET PO SCH (09:05)
[2018-06-29] MEDS: DOCUSATE SODIUM 100 MG CAPSULE PO SCH ×2 (09:05→21:42)
[2018-06-29] MEDS: FLUoxetine 20 MG CAPSULE PO SCH (09:05)
[2018-06-29] MEDS: THEOPHYLLINE ER 300 MG TABLET PO SCH (09:05)
[2018-06-29] MEDS: MONTELUKAST 10 MG TABLET PO SCH (09:05)
[2018-06-29] MEDS: POLYETHYLENE GLYCOL POWDER 17 GM PACK PO SCH (09:06)
[2018-06-29] MEDS: SODIUM CHLORIDE 0.9% 1,000 ML IV SCH ×2 (09:23→12:18)
[2018-06-29] MEDS: FUROSEMIDE 20 MG TABLET PO SCH (11:36)
[2018-06-29] MEDS: DONEPEZIL 10 MG TABLET PO SCH (21:41)
[2018-06-29] MEDS: traZODone 50 MG TABLET PO SCH (21:42)
[2018-06-30] MEDS: SODIUM CHLORIDE 0.9% 1,000 ML IV SCH (01:00)
[2018-06-30] MEDS: IPRATROPIUM 500 MCG/2.5 ML NEB RESP TX SCH (07:16)
[2018-06-30 07:29] VITALS: BP 155/86
[2018-06-30] MEDS: DOCUSATE SODIUM 100 MG CAPSULE PO SCH (08:37)
[2018-06-30] MEDS: POTASSIUM CHLORIDE 10 MEQ TABLET PO SCH (08:37)
[2018-06-30] MEDS: MAGNESIUM CHLORIDE 64 MG TABLET PO SCH (08:37)
[2018-06-30] MEDS: MEMANTINE 10 MG TABLET PO SCH (08:37)
[2018-06-30] MEDS: FLUoxetine 20 MG CAPSULE PO SCH (08:37)
[2018-06-30] MEDS: PANTOPRAZOLE 40 MG TABLET PO SCH (08:37)
[2018-06-30] MEDS: CELECOXIB 200 MG CAPSULE PO SCH (08:37)
[2018-06-30] MEDS: buPROPion 75 MG TABLET PO SCH (08:37)
[2018-06-30] MEDS: ASPIRIN EC 81 MG TABLET PO SCH (08:37)
[2018-06-30] MEDS: MONTELUKAST 10 MG TABLET PO SCH (08:38)
[2018-06-30] MEDS: CARVEDILOL 6.25 MG TABLET PO SCH (08:38)
[2018-06-30] MEDS: VERAPAMIL 80 MG TABLET PO SCH (08:38)
[2018-06-30] MEDS: CHOLESTYRAMINE/ASPARTAME 4 GM PACK PO SCH (08:38)
[2018-06-30] MEDS: POLYETHYLENE GLYCOL POWDER 17 GM PACK PO SCH (08:38)
[2018-06-30] MEDS: THEOPHYLLINE ER 300 MG TABLET PO SCH (08:38)
[2018-06-30] MEDS: cefTRIAXone 1,000 MG in SYRINGE 1 EACH IV SCH (08:39)
== END 2018-06-30 09:41 | disposition swing bed (61) | DRG 682 ==
LOC: EDUNIT# → N.ED 09:30 → N.EDINP 12:34 → N.2E 14:47
PROVIDERS: ADMIT Internal Medicine; ATTEND Internal Medicine

== ENCOUNTER 2019-01-02 19:04 | Inpatient (IN) ==
[2019-01-02] MEDS ORDERED: ONDANSETRON 4 MG/2 ML VIAL IV STA (19:35)
[2019-01-02] MEDS ORDERED: MORPHINE 4 MG/1 ML VIAL IV STA ×2 (19:35→20:43)
[2019-01-02 20:12] LABS: Basophils # 0.1 10*3/uL (0.0-0.2); Basophils % 0.6 % (0.0-0.8); Eosinophils # 0.1 10*3/uL (0.0-0.87); Eosinophils % 1.1 % (0.00-10.9); Hematocrit 35.5 VOL% (35.7-47.0); Hemoglobin 11.1 GM/DL (12.0-16.0); Immature Granulocytes % 0.5 %; Immature Granulocytes Absolute 0.06 #; Lymphocytes # 1.1 10*3/uL (1.4-4.0); Mean Corpuscular HGB Conc 31.3 GM/DL (32-36); Mean Corpuscular Volume 96.2 FL (87-102); Mean Platelet Volume 11.6 FL (9.6-12.0); Monocytes % 7.4 % (1.7-12.7); Neutrophils % 80.4 % (38.7-73.9); Platelet Count 145 T/CUMM (130-400); Red Blood Count 3.69 MC/CUMM (3.8-5.5); Red Cell Distribution Width 14.1 % (9.3-17.3); White Blood Count 11.4 T/CUMM (4-12)
[2019-01-02 20:19] LABS: PT Patient Result 11.3 SECS (9.6-12.2)
[2019-01-02 20:39] LABS: Alanine Aminotransferase 19 U/L (13-56); Albumin 3.4 G/DL (3.4-5.0); Alkaline Phosphatase 165 U/L (45-117); Aspartate Amino Transferase 20 U/L (0-37); Bilirubin,Total < 0.39 MG/DL (0.2-1.0); Blood Urea Nitrogen 30 MG/DL (7-18); Calcium 9.3 MG/DL (8.5-10.1); Estimated Glom Filtration Rate 38 ML/MIN; Glucose 140 MG/DL (74-106); Osmolality,Calculated 284.5 MOS/KG (273-304); Total Protein 7.3 G/DL (6.4-8.3)
[2019-01-02] MEDS ORDERED: BISACODYL 5 MG TABLET PO PRN (21:03)
[2019-01-02] MEDS ORDERED: ONDANSETRON 4 MG/2 ML VIAL IV PRN (21:03)
[2019-01-02 22:26] LABS: Apearance,Urine Slightly Hazy (Clear); Bacteria,Urine Many /HPF (Few); Bilirubin,Urine Negative (Negative); Blood, Urine Negative (Negative); Glucose,Urine (UA) Negative (Negative); Ketones,Urine Negative (Negative); Mucus,Urine Occasional /LPF (Occasional); Nitrite,Urine Positive (Negative); Protein,Urine Negative; Urine Color Yellow (Yellow); Urine Urobilinogen < 2.0 EU/DL (0.2-1.0); WBC,Urine 7 /HPF (0-6)
[2019-01-03] MEDS: ALBUTEROL/IPRATROPIUM 3 ML NEB RESP TX SCH ×4 (00:58→19:51)
[2019-01-03] MEDS ORDERED: ALBUTEROL 2.5 MG/3 ML NEB RESP TX PRN (03:00)
[2019-01-03] MEDS: MORPHINE 4 MG/1 ML VIAL IV PRN ×3 (03:13→20:14)
[2019-01-03 05:07] LABS: Basophils # 0.1 10*3/uL (0.0-0.2); Basophils % 0.8 % (0.0-0.8); Eosinophils # 0.2 10*3/uL (0.0-0.87); Eosinophils % 1.6 % (0.00-10.9); Hematocrit 32.7 VOL% (35.7-47.0); Hemoglobin 10.2 GM/DL (12.0-16.0); Immature Granulocytes % 0.4 %; Immature Granulocytes Absolute 0.04 #; Lymphocytes # 1.4 10*3/uL (1.4-4.0); Lymphocytes % 15.3 % (21.3-54.2); Mean Corpuscular HGB Conc 31.2 GM/DL (32-36); Mean Corpuscular Volume 95.9 FL (87-102); Mean Platelet Volume 11.4 FL (9.6-12.0); Neutrophils % 69.9 % (38.7-73.9); Platelet Count 135 T/CUMM (130-400); Red Blood Count 3.41 MC/CUMM (3.8-5.5); Red Cell Distribution Width 14.2 % (9.3-17.3); White Blood Count 9.3 T/CUMM (4-12)
[2019-01-03] MEDS ORDERED: IPRATROPIUM 500 MCG/2.5 ML NEB RESP TX SCH (07:00)
[2019-01-03] MEDS ORDERED: ceFAZolin 1,000 MG in SYRINGE 1 EACH IV ONE (08:00)
[2019-01-03] MEDS: DEXTROSE 5% LACTATED RINGERS 1,000 ML IV SCH ×3 (08:08→17:30)
[2019-01-03] MEDS: buPROPion SR 150 MG TABLET PO SCH ×2 (09:00→20:07)
[2019-01-03] MEDS: THEOPHYLLINE ER 300 MG TABLET PO SCH (09:00)
[2019-01-03] MEDS: MAGNESIUM CHLORIDE 64 MG TABLET PO SCH ×2 (09:00→20:07)
[2019-01-03] MEDS: carvediloL 6.25 MG TABLET PO SCH ×2 (09:55→17:52)
[2019-01-03] MEDS: DOCUSATE SODIUM 100 MG CAPSULE PO SCH ×2 (10:14→20:07)
[2019-01-03] MEDS: VERAPAMIL 80 MG TABLET PO SCH (10:14)
[2019-01-03] MEDS: POTASSIUM CHLORIDE 10 MEQ TABLET PO SCH (10:15)
[2019-01-03] MEDS: POLYETHYLENE GLYCOL POWDER 17 GM PACK PO SCH (10:15)
[2019-01-03] MEDS: PANTOPRAZOLE 40 MG TABLET PO SCH (10:17)
[2019-01-03] MEDS: FLUoxetine 20 MG CAPSULE PO SCH (10:17)
[2019-01-03] MEDS: MONTELUKAST 10 MG TABLET PO SCH (10:18)
[2019-01-03] MEDS: FUROSEMIDE 20 MG TABLET PO SCH (12:00)
[2019-01-03] MEDS ORDERED: BACITRACIN OINT 0.9 GM PACK TOP ONE (12:07)
[2019-01-03] MEDS ORDERED: ALBUMIN 5% 12.5 GM/250 ML VIAL IV ONE ×2 (12:19)
[2019-01-03] MEDS ORDERED: LIDOCAINE 2% 5 ML VIAL ONE (15:05)
[2019-01-03] MEDS ORDERED: SEVOFLURANE 1 UNIT/15 MINUTE INH ONE (15:05)
[2019-01-03] MEDS ORDERED: CALCIUM CHLORIDE 1,000 MG/10 ML VIAL IV ONE (15:05)
[2019-01-03] MEDS ORDERED: ROCURONIUM 100 MG/10 ML VIAL IV ONE (15:06)
[2019-01-03] MEDS ORDERED: ePHEDrine 50 MG/ML AMP ONE (15:06)
[2019-01-03] MEDS ORDERED: DEXAMETHASONE 4 MG/1 ML VIAL ONE (15:06)
[2019-01-03] MEDS ORDERED: ETOMIDATE 40 MG/20 ML VIAL IV ONE (15:06)
[2019-01-03] MEDS ORDERED: FUROSEMIDE 20 MG/2 ML VIAL ONE (15:06)
[2019-01-03] MEDS ORDERED: SODIUM CHLORIDE 0.9% 250 ML IV ONE (15:06)
[2019-01-03] MEDS ORDERED: fentaNYL 100 MCG/2 ML VIAL ONE (15:06)
[2019-01-03] MEDS ORDERED: SUCCINYLCHOLINE 200 MG/10 ML VIAL ONE (15:06)
[2019-01-03] MEDS ORDERED: ONDANSETRON 4 MG/2 ML VIAL ONE (15:06)
[2019-01-03] MEDS ORDERED: MAGNESIUM HYDROXIDE SUSP 30 ML UDCUP PO PRN (15:20)
[2019-01-03] MEDS: DONEPEZIL 10 MG TABLET PO SCH (20:07)
[2019-01-03] MEDS: ceFAZolin 1,000 MG in SYRINGE 1 EACH IV SCH (20:07)
[2019-01-03] MEDS: NITROFURANTOIN MACRO/MONO 100 MG CAPSULE PO SCH (20:07)
[2019-01-04] MEDS: MORPHINE 4 MG/1 ML VIAL IV PRN (00:24)
[2019-01-04] MEDS: ALBUTEROL/IPRATROPIUM 3 ML NEB RESP TX SCH ×4 (00:40→19:54)
[2019-01-04] MEDS: ceFAZolin 1,000 MG in SYRINGE 1 EACH IV SCH (04:15)
[2019-01-04] MEDS: DEXTROSE 5% LACTATED RINGERS 1,000 ML IV SCH (04:16)
[2019-01-04 04:57] LABS: Basophils # 0.1 10*3/uL (0.0-0.2); Basophils % 0.6 % (0.0-0.8); Eosinophils # 0.2 10*3/uL (0.0-0.87); Eosinophils % 1.2 % (0.00-10.9); Hematocrit 23.7 VOL% (35.7-47.0); Hemoglobin 7.1 GM/DL (12.0-16.0); Immature Granulocytes % 0.8 %; Immature Granulocytes Absolute 0.11 #; Lymphocytes # 1.6 10*3/uL (1.4-4.0); Lymphocytes % 11.9 % (21.3-54.2); Mean Corpuscular Volume 98.3 FL (87-102); Mean Platelet Volume 12.1 FL (9.6-12.0); Monocytes % 8.2 % (1.7-12.7); Neutrophils % 77.3 % (38.7-73.9); Platelet Count 100 T/CUMM (130-400); Red Blood Count 2.41 MC/CUMM (3.8-5.5); Red Cell Distribution Width 14.2 % (9.3-17.3); White Blood Count 13.7 T/CUMM (4-12)
[2019-01-04 05:28] LABS: Calcium 8.5 MG/DL (8.5-10.1); Osmolality,Calculated 294.3 MOS/KG (273-304)
[2019-01-04] MEDS ORDERED: FUROSEMIDE 40 MG/4 ML VIAL IV PRN (07:02)
[2019-01-04] MEDS ORDERED: SODIUM CHLORIDE 0.9% 1,000 ML IV PRN (07:02)
[2019-01-04] MEDS: VERAPAMIL 80 MG TABLET PO SCH (08:06)
[2019-01-04] MEDS: THEOPHYLLINE ER 300 MG TABLET PO SCH (08:06)
[2019-01-04] MEDS: buPROPion SR 150 MG TABLET PO SCH ×2 (08:06→20:53)
[2019-01-04] MEDS: MONTELUKAST 10 MG TABLET PO SCH (08:06)
[2019-01-04] MEDS: POTASSIUM CHLORIDE 10 MEQ TABLET PO SCH (08:06)
[2019-01-04] MEDS: FLUoxetine 20 MG CAPSULE PO SCH (08:06)
[2019-01-04] MEDS: MAGNESIUM CHLORIDE 64 MG TABLET PO SCH ×2 (08:06→20:53)
[2019-01-04] MEDS: POLYETHYLENE GLYCOL POWDER 17 GM PACK PO SCH (08:06)
[2019-01-04] MEDS: DOCUSATE SODIUM 100 MG CAPSULE PO SCH ×2 (08:06→20:53)
[2019-01-04] MEDS: PANTOPRAZOLE 40 MG TABLET PO SCH (08:07)
[2019-01-04] MEDS: carvediloL 6.25 MG TABLET PO SCH (08:07)
[2019-01-04] MEDS ORDERED: ALUMINUM/MAGNES/SIMETH MAX STR 30 ML UDCUP PO PRN (08:52)
[2019-01-04] MEDS ORDERED: FLUoxetine 10 MG CAPSULE PO SCH (09:00)
[2019-01-04] MEDS ORDERED: FONDAPARINUX 2.5 MG/0.5 ML SYRINGE SUBCUT SCH (09:21)
[2019-01-04] MEDS: FUROSEMIDE 20 MG TABLET PO SCH (12:08)
[2019-01-04] MEDS: MEMANTINE 10 MG TABLET PO SCH (13:25)
[2019-01-04] MEDS: SODIUM CHLORIDE 0.9% 1,000 ML IV SCH (16:45)
[2019-01-04] MEDS: cefTRIAXone 1,000 MG in SYRINGE 1 EACH IV SCH (17:16)
[2019-01-04 18:04] LABS: Hematocrit 31.1 VOL% (35.7-47.0); Hemoglobin 9.9 GM/DL (12.0-16.0)
[2019-01-04] MEDS: NITROFURANTOIN MACRO/MONO 100 MG CAPSULE PO SCH (20:53)
[2019-01-04] MEDS: DONEPEZIL 10 MG TABLET PO SCH (20:53)
[2019-01-05] MEDS: ALBUTEROL/IPRATROPIUM 3 ML NEB RESP TX SCH ×4 (00:56→19:27)
[2019-01-05] MEDS: diphenhydrAMINE CAP 25 MG CAPSULE PO PRN (02:33)
[2019-01-05 05:43] LABS: Calcium 8.3 MG/DL (8.5-10.1); Osmolality,Calculated 287.7 MOS/KG (273-304)
[2019-01-05 05:45] LABS: Basophils % 0.3 % (0.0-0.8); Eosinophils # 0.1 10*3/uL (0.0-0.87); Eosinophils % 0.9 % (0.00-10.9); Hematocrit 29.5 VOL% (35.7-47.0); Hemoglobin 9.7 GM/DL (12.0-16.0); Immature Granulocytes Absolute 0.15 #; Lymphocytes # 1.7 10*3/uL (1.4-4.0); Lymphocytes % 11.1 % (21.3-54.2); Mean Corpuscular HGB Conc 32.9 GM/DL (32-36); Mean Corpuscular Volume 92.2 FL (87-102); Monocytes % 10.4 % (1.7-12.7); NRBC # 0.02 10*3/uL; Neutrophils % 76.3 % (38.7-73.9); Red Cell Distribution Width 15.4 % (9.3-17.3); White Blood Count 15.2 T/CUMM (4-12)
[2019-01-05 05:47] LABS: Platelet Count 78 T/CUMM (130-400)
[2019-01-05 05:53] LABS: Hypochromasia 1+; Platelet Estimate Decreased
[2019-01-05 06:15] LABS: Folate 13.1 NG/ML (5.4-24.0)
[2019-01-05] MEDS ORDERED: MAGNESIUM SULF RIDER 2 GM in PREMIX 1 EACH IV PRN (07:11)
[2019-01-05] MEDS ORDERED: MAGNESIUM SULF RIDER 4 GM in PREMIX 1 EACH IV PRN (07:11)
[2019-01-05] MEDS: SODIUM CHLORIDE 0.9% 1,000 ML IV SCH (08:27)
[2019-01-05] MEDS: THEOPHYLLINE ER 300 MG TABLET PO SCH (08:28)
[2019-01-05] MEDS: POLYETHYLENE GLYCOL POWDER 17 GM PACK PO SCH (08:28)
[2019-01-05] MEDS: MAGNESIUM CHLORIDE 64 MG TABLET PO SCH ×2 (08:28→21:44)
[2019-01-05] MEDS: PANTOPRAZOLE 40 MG TABLET PO SCH (08:28)
[2019-01-05] MEDS: ENOXAPARIN 30 MG/0.3 ML SYRINGE SUBCUT SCH (08:28)
[2019-01-05] MEDS: buPROPion SR 150 MG TABLET PO SCH ×2 (08:28→21:43)
[2019-01-05] MEDS: DOCUSATE SODIUM 100 MG CAPSULE PO SCH ×2 (08:29→21:44)
[2019-01-05] MEDS: FLUoxetine 20 MG CAPSULE PO SCH (08:29)
[2019-01-05] MEDS: MEMANTINE 10 MG TABLET PO SCH (08:29)
[2019-01-05] MEDS: POTASSIUM CHLORIDE 10 MEQ TABLET PO SCH (08:29)
[2019-01-05] MEDS: MONTELUKAST 10 MG TABLET PO SCH (08:29)
[2019-01-05] MEDS: cefTRIAXone 1,000 MG in SYRINGE 1 EACH IV SCH (08:43)
[2019-01-05] MEDS ORDERED: ERGOCALCIFEROL 50,000 UNIT CAPSULE PO SCH (09:00)
[2019-01-05] MEDS ORDERED: traZODone 50 MG TABLET PO PRN (11:49)
[2019-01-05] MEDS ORDERED: PNEUMOCOCCAL VACCINE (13 VALENT) 0.5 ML SYRINGE IM ONE (12:30)
[2019-01-05] MEDS ORDERED: INFLUENZA VIRUS VACCINE 0.5 ML SYRINGE IM ONE (12:31)
[2019-01-05] MEDS: carvediloL 6.25 MG TABLET PO SCH (18:22)
[2019-01-05] MEDS: NITROFURANTOIN MACRO/MONO 100 MG CAPSULE PO SCH (21:43)
[2019-01-05] MEDS: DONEPEZIL 10 MG TABLET PO SCH (21:44)
[2019-01-06] MEDS: ALBUTEROL/IPRATROPIUM 3 ML NEB RESP TX SCH ×3 (00:30→13:44)
[2019-01-06] MEDS: diphenhydrAMINE CAP 25 MG CAPSULE PO PRN (00:40)
[2019-01-06] MEDS: SODIUM CHLORIDE 0.9% 1,000 ML IV SCH (01:00)
[2019-01-06] MEDS ORDERED: ZALEPLON 5 MG CAPSULE PO PRN (02:15)
[2019-01-06 07:20] LABS: Basophils # 0.1 10*3/uL (0.0-0.2); Basophils % 0.5 % (0.0-0.8); Eosinophils # 0.3 10*3/uL (0.0-0.87); Eosinophils % 2.3 % (0.00-10.9); Hematocrit 26.4 VOL% (35.7-47.0); Hemoglobin 8.6 GM/DL (12.0-16.0); Immature Granulocytes % 0.8 %; Immature Granulocytes Absolute 0.09 #; Lymphocytes # 1.6 10*3/uL (1.4-4.0); Lymphocytes % 15.3 % (21.3-54.2); Mean Corpuscular HGB Conc 32.6 GM/DL (32-36); Mean Corpuscular Volume 92.6 FL (87-102); Mean Platelet Volume 12.5 FL (9.6-12.0); Monocytes % 8.8 % (1.7-12.7); Neutrophils % 72.3 % (38.7-73.9); Platelet Count 80 T/CUMM (130-400); Red Blood Count 2.85 MC/CUMM (3.8-5.5); Red Cell Distribution Width 14.8 % (9.3-17.3); White Blood Count 10.7 T/CUMM (4-12)
[2019-01-06 07:39] LABS: Anisocytosis 1+; Giant Platelets Few; Platelet Estimate Decreased
[2019-01-06 07:40] LABS: Calcium 8.2 MG/DL (8.5-10.1); Osmolality,Calculated 282.8 MOS/KG (273-304)
[2019-01-06] MEDS: cefTRIAXone 1,000 MG in SYRINGE 1 EACH IV SCH (09:54)
[2019-01-06] MEDS: buPROPion SR 150 MG TABLET PO SCH (09:57)
[2019-01-06] MEDS: MONTELUKAST 10 MG TABLET PO SCH (09:57)
[2019-01-06] MEDS: PANTOPRAZOLE 40 MG TABLET PO SCH (09:58)
[2019-01-06] MEDS: FLUoxetine 20 MG CAPSULE PO SCH (09:59)
[2019-01-06] MEDS: MEMANTINE 10 MG TABLET PO SCH (09:59)
[2019-01-06] MEDS: MAGNESIUM CHLORIDE 64 MG TABLET PO SCH (10:00)
[2019-01-06] MEDS: ENOXAPARIN 30 MG/0.3 ML SYRINGE SUBCUT SCH (10:00)
[2019-01-06] MEDS: carvediloL 6.25 MG TABLET PO SCH (10:00)
[2019-01-06] MEDS: POTASSIUM CHLORIDE 10 MEQ TABLET PO SCH (10:00)
[2019-01-06] MEDS: VERAPAMIL 80 MG TABLET PO SCH (10:00)
[2019-01-06] MEDS: DOCUSATE SODIUM 100 MG CAPSULE PO SCH (10:00)
[2019-01-06] MEDS: THEOPHYLLINE ER 300 MG TABLET PO SCH (10:00)
[2019-01-06] MEDS: POLYETHYLENE GLYCOL POWDER 17 GM PACK PO SCH (10:00)
[2019-01-06 11:36] VITALS: BP 151/64
== END 2019-01-06 15:39 | DRG 481 ==
LOC: EDBD → EDUNIT# → N.ED 19:04 → SUATTDRO 22:25 → N.EDINP 22:25 → N.3E 23:03
PROVIDERS: ADMIT Internal Medicine Cardiovascular Disease; ATTEND Internal Medicine

== ENCOUNTER 2019-03-17 12:21 | Inpatient (IN) ==
[2019-03-17] MEDS ORDERED: CLINDAMYCIN INJ 900 MG in PREMIX 1 EACH IV STA (12:39)
[2019-03-17 13:52] LABS: Basophils # 0.1 10*3/uL (0.0-0.2); Basophils % 0.3 % (0.0-0.8); Eosinophils # 0.1 10*3/uL (0.0-0.87); Eosinophils % 0.2 % (0.00-10.9); Hematocrit 40.9 VOL% (35.7-47.0); Hemoglobin 12.9 GM/DL (12.0-16.0); Immature Granulocytes % 0.9 %; Immature Granulocytes Absolute 0.18 #; Lymphocytes # 1.8 10*3/uL (1.4-4.0); Mean Corpuscular HGB Conc 31.5 GM/DL (32-36); Mean Corpuscular Volume 91.7 FL (87-102); Mean Platelet Volume 11.4 FL (9.6-12.0); Monocytes % 6.2 % (1.7-12.7); Neutrophils % 83.4 % (38.7-73.9); Platelet Count 192 T/CUMM (130-400); Red Blood Count 4.46 MC/CUMM (3.8-5.5); Red Cell Distribution Width 13.8 % (9.3-17.3); White Blood Count 20.3 T/CUMM (4-12)
[2019-03-17 14:07] LABS: Blood Urea Nitrogen 31 MG/DL (7-18); Calcium 9.3 MG/DL (8.5-10.1); Estimated Glom Filtration Rate 51 ML/MIN; Glucose 170 MG/DL (74-106); Osmolality,Calculated 272.7 MOS/KG (273-304)
[2019-03-17 14:14] LABS: Band Neutrophils 1 % (0-10); Eosinophils 1 % (0-10); Lymphocytes 12 % (20-55); Platelet Estimate Normal; Segmented Neutrophils 82 % (50-85); Total Cells Counted 100
[2019-03-17] MEDS ORDERED: LIDOCAINE 1%/EPI INJ 20 ML VIAL ONE (14:16)
[2019-03-17] MEDS ORDERED: BUPIVACAINE 0.25% /EPI 10 ML VIAL ONE (14:16)
[2019-03-17] MEDS ORDERED: KETAMINE 500 MG/10 ML VIAL ONE (15:31)
[2019-03-17] MEDS ORDERED: LIDOCAINE 2% 5 ML VIAL ONE (15:31)
[2019-03-17] MEDS ORDERED: propofoL 200 MG/20 ML VIAL IV ONE (15:31)
[2019-03-17] MEDS ORDERED: MIDAZOLAM 2 MG/2 ML VIAL ONE (15:32)
[2019-03-17] MEDS ORDERED: HYDROCORTISONE 1% CREAM 28 GM TUBE TOP PRN (16:12)
[2019-03-17] MEDS ORDERED: POLYETHYLENE GLYCOL POWDER 17 GM PACK PO PRN (16:12)
[2019-03-17 17:28] LABS: Risk Ratio 2.98; Thyroid Stimulating Hormone 0.587 uIU/ml (0.358-3.74); VLDL CHOLESTEROL 13.8 MG/DL
[2019-03-17] MEDS: SODIUM CHLORIDE 0.9% 1,000 ML IV SCH (17:33)
[2019-03-17] MEDS: PIPERACILLIN/TAZOBACTAM 3,375 MG in SODIUM CHLORIDE 0.9% 100 ML IV SCH ×2 (17:36→22:19)
[2019-03-17] MEDS: carvediloL 6.25 MG TABLET PO SCH (18:42)
[2019-03-17] MEDS ORDERED: ALBUTEROL 2.5 MG/3 ML NEB RESP TX PRN (19:00)
[2019-03-17] MEDS: IPRATROPIUM 500 MCG/2.5 ML NEB RESP TX SCH (19:23)
[2019-03-17] MEDS: MAGNESIUM CHLORIDE 64 MG TABLET PO SCH (22:18)
[2019-03-17] MEDS: DONEPEZIL 10 MG TABLET PO SCH (22:18)
[2019-03-17] MEDS: buPROPion SR 150 MG TABLET PO SCH (22:18)
[2019-03-17] MEDS: traZODone 50 MG TABLET PO SCH (22:19)
[2019-03-18 05:51] LABS: Basophils # 0.1 10*3/uL (0.0-0.2); Basophils % 0.4 % (0.0-0.8); Eosinophils # 0.1 10*3/uL (0.0-0.87); Eosinophils % 0.5 % (0.00-10.9); Hematocrit 34.5 VOL% (35.7-47.0); Immature Granulocytes % 0.9 %; Immature Granulocytes Absolute 0.13 #; Lymphocytes # 2.6 10*3/uL (1.4-4.0); Lymphocytes % 18.7 % (21.3-54.2); Mean Corpuscular HGB Conc 31.6 GM/DL (32-36); Mean Corpuscular Volume 91.5 FL (87-102); Mean Platelet Volume 11.4 FL (9.6-12.0); Monocytes % 6.8 % (1.7-12.7); Neutrophils % 72.7 % (38.7-73.9); Platelet Count 181 T/CUMM (130-400); Red Blood Count 3.77 MC/CUMM (3.8-5.5); Red Cell Distribution Width 14.1 % (9.3-17.3)
[2019-03-18 06:01] LABS: Hemoglobin 10.9 GM/DL (12.0-16.0); White Blood Count 13.9 T/CUMM (4-12)
[2019-03-18 06:09] LABS: Calcium 8.7 MG/DL (8.5-10.1); Osmolality,Calculated 282.7 MOS/KG (273-304)
[2019-03-18] MEDS: PIPERACILLIN/TAZOBACTAM 3,375 MG in SODIUM CHLORIDE 0.9% 100 ML IV SCH ×2 (06:09→15:54)
[2019-03-18] MEDS: IPRATROPIUM 500 MCG/2.5 ML NEB RESP TX SCH ×4 (06:50→20:36)
[2019-03-18] MEDS: THEOPHYLLINE ER 300 MG TABLET PO SCH (12:18)
[2019-03-18] MEDS: buPROPion SR 150 MG TABLET PO SCH ×2 (12:19→22:22)
[2019-03-18] MEDS: FLUoxetine 10 MG CAPSULE PO SCH (12:19)
[2019-03-18] MEDS: carvediloL 6.25 MG TABLET PO SCH ×2 (12:19→18:31)
[2019-03-18] MEDS: POTASSIUM CHLORIDE 10 MEQ TABLET PO SCH (12:19)
[2019-03-18] MEDS: MEMANTINE 10 MG TABLET PO SCH (12:20)
[2019-03-18] MEDS: MAGNESIUM CHLORIDE 64 MG TABLET PO SCH ×2 (12:20→22:22)
[2019-03-18] MEDS: MONTELUKAST 10 MG TABLET PO SCH (12:20)
[2019-03-18] MEDS: VERAPAMIL 80 MG TABLET PO SCH (12:20)
[2019-03-18] MEDS: PANTOPRAZOLE 40 MG TABLET PO SCH (12:21)
[2019-03-18] MEDS ORDERED: MAGNESIUM SULF RIDER 2 GM in PREMIX 1 EACH IV PRN (15:07)
[2019-03-18] MEDS: MENTHOL/ZINC OXIDE OINT 71 GM JAR TOP SCH ×2 (15:56→22:23)
[2019-03-18] MEDS: SODIUM HYPOCHLORITE 0.25% IRRIG 473 ML BOTTLE TOP SCH (18:33)
[2019-03-18] MEDS: ZINC OXIDE PASTE 113 GM TUBE TOP SCH (22:22)
[2019-03-18] MEDS: DONEPEZIL 10 MG TABLET PO SCH (22:22)
[2019-03-18] MEDS: traZODone 50 MG TABLET PO SCH (22:22)
[2019-03-19] MEDS: PIPERACILLIN/TAZOBACTAM 3,375 MG in SODIUM CHLORIDE 0.9% 100 ML IV SCH ×3 (00:54→17:31)
[2019-03-19 02:37] LABS: Apearance,Urine Slightly Hazy (Clear); Bilirubin,Urine Negative (Negative); Blood, Urine Small mg/dL (Negative); Glucose,Urine (UA) Negative (Negative); Ketones,Urine Negative (Negative); Nitrite,Urine Negative (Negative); Protein,Urine Negative; RBC,Urine 8 /HPF (0-4); Squamous Epithelial Cell,Urine Occasional /HPF (0-10); Urine Color Yellow (Yellow); Urine Specific Gravity 1.015 (1.001-1.035); Urine Urobilinogen < 2.0 EU/DL (0.2-1.0); WBC,Urine 124 /HPF (0-6)
[2019-03-19] MEDS: MAGNESIUM SULF RIDER 4 GM in PREMIX 1 EACH IV PRN (02:47)
[2019-03-19] MEDS: SODIUM CHLORIDE 0.9% 1,000 ML IV SCH (06:17)
[2019-03-19 06:26] LABS: Basophils # 0.1 10*3/uL (0.0-0.2); Basophils % 0.9 % (0.0-0.8); Eosinophils # 0.2 10*3/uL (0.0-0.87); Eosinophils % 1.6 % (0.00-10.9); Hematocrit 35.7 VOL% (35.7-47.0); Immature Granulocytes % 1.3 %; Immature Granulocytes Absolute 0.13 #; Lymphocytes % 19.8 % (21.3-54.2); Mean Corpuscular HGB Conc 30.8 GM/DL (32-36); Mean Corpuscular Volume 91.5 FL (87-102); Mean Platelet Volume 10.9 FL (9.6-12.0); Monocytes % 7.2 % (1.7-12.7); Neutrophils % 69.2 % (38.7-73.9); Platelet Count 197 T/CUMM (130-400); Red Cell Distribution Width 14.1 % (9.3-17.3)
[2019-03-19 06:39] LABS: Calcium 8.8 MG/DL (8.5-10.1)
[2019-03-19] MEDS: IPRATROPIUM 500 MCG/2.5 ML NEB RESP TX SCH ×4 (07:54→19:50)
[2019-03-19] MEDS ORDERED: SODIUM HYPOCHLORITE 0.25% IRRIG 473 ML BOTTLE TOP SCH (09:00)
[2019-03-19] MEDS: SODIUM HYPOCHLORITE 0.25% IRRIG 473 ML BOTTLE TOP SCH ×2 (09:47→09:51)
[2019-03-19] MEDS: ZINC OXIDE PASTE 113 GM TUBE TOP SCH ×2 (09:48→20:48)
[2019-03-19] MEDS: MENTHOL/ZINC OXIDE OINT 71 GM JAR TOP SCH ×2 (09:48→20:40)
[2019-03-19] MEDS: MEMANTINE 10 MG TABLET PO SCH (09:49)
[2019-03-19] MEDS: MONTELUKAST 10 MG TABLET PO SCH (09:49)
[2019-03-19] MEDS: carvediloL 6.25 MG TABLET PO SCH ×2 (09:49→17:31)
[2019-03-19] MEDS: POTASSIUM CHLORIDE 10 MEQ TABLET PO SCH (09:49)
[2019-03-19] MEDS: THEOPHYLLINE ER 300 MG TABLET PO SCH (09:49)
[2019-03-19] MEDS: buPROPion SR 150 MG TABLET PO SCH ×2 (09:49→20:40)
[2019-03-19] MEDS: VERAPAMIL 80 MG TABLET PO SCH (09:49)
[2019-03-19] MEDS: FLUoxetine 10 MG CAPSULE PO SCH (09:49)
[2019-03-19] MEDS: MAGNESIUM CHLORIDE 64 MG TABLET PO SCH ×2 (09:50→20:51)
[2019-03-19] MEDS: PANTOPRAZOLE 40 MG TABLET PO SCH (09:50)
[2019-03-19] MEDS: CHLORHEXIDINE 4% SOLN 118 ML BOTTLE TOP SCH (09:50)
[2019-03-19] MEDS: POTASSIUM CHLORIDE 20 MEQ TABLET PO PRN ×3 (13:06→20:41)
[2019-03-19] MEDS ORDERED: cefTRIAXone 1,000 MG in SYRINGE 1 EACH IV ONE ×2 (18:20→21:00)
[2019-03-19] MEDS: DONEPEZIL 10 MG TABLET PO SCH (20:40)
[2019-03-19] MEDS: traZODone 50 MG TABLET PO SCH (20:40)
[2019-03-20 03:46] LABS: Basophils # 0.1 10*3/uL (0.0-0.2); Basophils % 0.6 % (0.0-0.8); Eosinophils # 0.2 10*3/uL (0.0-0.87); Eosinophils % 1.8 % (0.00-10.9); Hematocrit 34.6 VOL% (35.7-47.0); Hemoglobin 10.7 GM/DL (12.0-16.0); Immature Granulocytes % 1.3 %; Immature Granulocytes Absolute 0.13 #; Lymphocytes # 2.2 10*3/uL (1.4-4.0); Lymphocytes % 21.1 % (21.3-54.2); Mean Corpuscular HGB Conc 30.9 GM/DL (32-36); Mean Corpuscular Volume 91.3 FL (87-102); Mean Platelet Volume 11.3 FL (9.6-12.0); Monocytes % 7.4 % (1.7-12.7); Neutrophils % 67.8 % (38.7-73.9); Platelet Count 213 T/CUMM (130-400); Red Blood Count 3.79 MC/CUMM (3.8-5.5); Red Cell Distribution Width 14.1 % (9.3-17.3); White Blood Count 10.2 T/CUMM (4-12)
[2019-03-20 04:07] LABS: Calcium 9.1 MG/DL (8.5-10.1); Osmolality,Calculated 278.7 MOS/KG (273-304)
[2019-03-20] MEDS: IPRATROPIUM 500 MCG/2.5 ML NEB RESP TX SCH ×4 (08:00→20:25)
[2019-03-20] MEDS: MAGNESIUM CHLORIDE 64 MG TABLET PO SCH ×2 (08:25→20:28)
[2019-03-20] MEDS: cefTRIAXone 1,000 MG in SYRINGE 1 EACH IV SCH (08:25)
[2019-03-20] MEDS: THEOPHYLLINE ER 300 MG TABLET PO SCH (08:25)
[2019-03-20] MEDS: carvediloL 6.25 MG TABLET PO SCH ×2 (08:25→17:18)
[2019-03-20] MEDS: POTASSIUM CHLORIDE 10 MEQ TABLET PO SCH (08:25)
[2019-03-20] MEDS: buPROPion SR 150 MG TABLET PO SCH ×2 (08:26→20:28)
[2019-03-20] MEDS: FLUoxetine 10 MG CAPSULE PO SCH (08:26)
[2019-03-20] MEDS: MEMANTINE 10 MG TABLET PO SCH (08:26)
[2019-03-20] MEDS: MONTELUKAST 10 MG TABLET PO SCH (08:26)
[2019-03-20] MEDS: VERAPAMIL 80 MG TABLET PO SCH (08:26)
[2019-03-20] MEDS: PANTOPRAZOLE 40 MG TABLET PO SCH (08:26)
[2019-03-20] MEDS: MENTHOL/ZINC OXIDE OINT 71 GM JAR TOP SCH ×2 (08:27→20:28)
[2019-03-20] MEDS: ZINC OXIDE PASTE 113 GM TUBE TOP SCH ×2 (08:27→20:28)
[2019-03-20] MEDS: SODIUM HYPOCHLORITE 0.25% IRRIG 473 ML BOTTLE TOP SCH ×2 (08:27→08:28)
[2019-03-20] MEDS: CHLORHEXIDINE 4% SOLN 118 ML BOTTLE TOP SCH (08:28)
[2019-03-20] MEDS ORDERED: ERGOCALCIFEROL 50,000 UNIT CAPSULE PO SCH (09:00)
[2019-03-20] MEDS ORDERED: ONDANSETRON 4 MG/2 ML VIAL IV PRN (10:00)
[2019-03-20] MEDS: DONEPEZIL 10 MG TABLET PO SCH (20:28)
[2019-03-21] MEDS: ACETAMINOPHEN 325 MG TABLET PO PRN ×2 (00:49→23:39)
[2019-03-21] MEDS: SODIUM CHLORIDE 0.9% 1,000 ML IV SCH ×2 (02:30→02:31)
[2019-03-21 06:31] LABS: Basophils # 0.1 10*3/uL (0.0-0.2); Basophils % 1.2 % (0.0-0.8); Eosinophils # 0.2 10*3/uL (0.0-0.87); Hematocrit 32.8 VOL% (35.7-47.0); Hemoglobin 10.1 GM/DL (12.0-16.0); Immature Granulocytes % 1.2 %; Lymphocytes # 2.2 10*3/uL (1.4-4.0); Lymphocytes % 25.1 % (21.3-54.2); Mean Corpuscular HGB Conc 30.8 GM/DL (32-36); Mean Corpuscular Volume 92.4 FL (87-102); Mean Platelet Volume 10.9 FL (9.6-12.0); Neutrophils % 63.5 % (38.7-73.9); Platelet Count 191 T/CUMM (130-400); Red Blood Count 3.55 MC/CUMM (3.8-5.5); Red Cell Distribution Width 13.9 % (9.3-17.3); White Blood Count 8.6 T/CUMM (4-12)
[2019-03-21 06:55] LABS: Calcium 8.9 MG/DL (8.5-10.1); Osmolality,Calculated 275.5 MOS/KG (273-304)
[2019-03-21] MEDS: IPRATROPIUM 500 MCG/2.5 ML NEB RESP TX SCH ×4 (07:24→19:48)
[2019-03-21] MEDS: FLUoxetine 10 MG CAPSULE PO SCH (10:01)
[2019-03-21] MEDS: THEOPHYLLINE ER 300 MG TABLET PO SCH (10:01)
[2019-03-21] MEDS: carvediloL 6.25 MG TABLET PO SCH ×2 (10:01→16:20)
[2019-03-21] MEDS: MAGNESIUM CHLORIDE 64 MG TABLET PO SCH ×3 (10:01→21:21)
[2019-03-21] MEDS: cefTRIAXone 1,000 MG in SYRINGE 1 EACH IV SCH (10:01)
[2019-03-21] MEDS: buPROPion SR 150 MG TABLET PO SCH ×2 (10:02→21:21)
[2019-03-21] MEDS: MEMANTINE 10 MG TABLET PO SCH (10:02)
[2019-03-21] MEDS: MONTELUKAST 10 MG TABLET PO SCH (10:02)
[2019-03-21] MEDS: VERAPAMIL 80 MG TABLET PO SCH (10:02)
[2019-03-21] MEDS: PANTOPRAZOLE 40 MG TABLET PO SCH (10:02)
[2019-03-21] MEDS: MENTHOL/ZINC OXIDE OINT 71 GM JAR TOP SCH ×2 (10:03→21:23)
[2019-03-21] MEDS: SODIUM HYPOCHLORITE 0.25% IRRIG 473 ML BOTTLE TOP SCH ×2 (10:03)
[2019-03-21] MEDS: ZINC OXIDE PASTE 113 GM TUBE TOP SCH ×2 (10:03→21:23)
[2019-03-21] MEDS: CHLORHEXIDINE 4% SOLN 118 ML BOTTLE TOP SCH (10:03)
[2019-03-21] MEDS: DONEPEZIL 10 MG TABLET PO SCH (21:21)
[2019-03-21] MEDS: traZODone 50 MG TABLET PO SCH (21:21)
[2019-03-22 05:01] LABS: Basophils # 0.1 10*3/uL (0.0-0.2); Basophils % 0.8 % (0.0-0.8); Eosinophils # 0.2 10*3/uL (0.0-0.87); Eosinophils % 1.9 % (0.00-10.9); Hematocrit 32.1 VOL% (35.7-47.0); Immature Granulocytes Absolute 0.09 #; Lymphocytes # 2.6 10*3/uL (1.4-4.0); Mean Corpuscular HGB Conc 31.2 GM/DL (32-36); Mean Corpuscular Volume 91.7 FL (87-102); Mean Platelet Volume 11.9 FL (9.6-12.0); Neutrophils % 59.3 % (38.7-73.9); Platelet Count 147 T/CUMM (130-400); Red Cell Distribution Width 14.5 % (9.3-17.3); White Blood Count 8.8 T/CUMM (4-12)
[2019-03-22 07:26] LABS: Calcium 9.2 MG/DL (8.5-10.1); Osmolality,Calculated 274.7 MOS/KG (273-304)
[2019-03-22] MEDS: IPRATROPIUM 500 MCG/2.5 ML NEB RESP TX SCH ×4 (07:37→19:50)
[2019-03-22] MEDS: carvediloL 6.25 MG TABLET PO SCH ×2 (09:16→17:59)
[2019-03-22] MEDS: VERAPAMIL 80 MG TABLET PO SCH (09:17)
[2019-03-22] MEDS: MEMANTINE 10 MG TABLET PO SCH (09:18)
[2019-03-22] MEDS: FLUoxetine 10 MG CAPSULE PO SCH (09:18)
[2019-03-22] MEDS: MONTELUKAST 10 MG TABLET PO SCH (09:18)
[2019-03-22] MEDS: PANTOPRAZOLE 40 MG TABLET PO SCH (09:18)
[2019-03-22] MEDS: MAGNESIUM CHLORIDE 64 MG TABLET PO SCH ×2 (09:19→20:14)
[2019-03-22] MEDS: buPROPion SR 150 MG TABLET PO SCH ×2 (09:19→20:14)
[2019-03-22] MEDS: THEOPHYLLINE ER 300 MG TABLET PO SCH (09:19)
[2019-03-22] MEDS: cefTRIAXone 1,000 MG in SYRINGE 1 EACH IV SCH (10:01)
[2019-03-22] MEDS: ZINC OXIDE PASTE 113 GM TUBE TOP SCH ×2 (10:06→20:13)
[2019-03-22] MEDS: SODIUM HYPOCHLORITE 0.25% IRRIG 473 ML BOTTLE TOP SCH ×2 (10:06→10:07)
[2019-03-22] MEDS: MENTHOL/ZINC OXIDE OINT 71 GM JAR TOP SCH ×2 (10:06→20:13)
[2019-03-22] MEDS: CHLORHEXIDINE 4% SOLN 118 ML BOTTLE TOP SCH (10:07)
[2019-03-22] MEDS: MAGNESIUM SULF RIDER 4 GM in PREMIX 1 EACH IV PRN (13:59)
[2019-03-22] MEDS: DONEPEZIL 10 MG TABLET PO SCH (20:13)
[2019-03-22] MEDS: traZODone 50 MG TABLET PO SCH (20:13)
[2019-03-22] MEDS: ACETAMINOPHEN 325 MG TABLET PO PRN (23:08)
[2019-03-23] MEDS: IPRATROPIUM 500 MCG/2.5 ML NEB RESP TX SCH ×2 (08:00→11:10)
[2019-03-23] MEDS: VERAPAMIL 80 MG TABLET PO SCH (08:59)
[2019-03-23] MEDS: carvediloL 6.25 MG TABLET PO SCH ×2 (08:59→17:03)
[2019-03-23] MEDS: PANTOPRAZOLE 40 MG TABLET PO SCH (09:00)
[2019-03-23] MEDS: MEMANTINE 10 MG TABLET PO SCH (09:00)
[2019-03-23] MEDS: FLUoxetine 10 MG CAPSULE PO SCH (09:00)
[2019-03-23] MEDS: THEOPHYLLINE ER 300 MG TABLET PO SCH (09:00)
[2019-03-23] MEDS: MAGNESIUM CHLORIDE 64 MG TABLET PO SCH (09:00)
[2019-03-23] MEDS: MONTELUKAST 10 MG TABLET PO SCH (09:00)
[2019-03-23] MEDS: buPROPion SR 150 MG TABLET PO SCH (09:01)
[2019-03-23] MEDS: cefTRIAXone 1,000 MG in SYRINGE 1 EACH IV SCH (09:01)
[2019-03-23] MEDS: MENTHOL/ZINC OXIDE OINT 71 GM JAR TOP SCH (10:25)
[2019-03-23] MEDS: ZINC OXIDE PASTE 113 GM TUBE TOP SCH (10:25)
[2019-03-23] MEDS: CHLORHEXIDINE 4% SOLN 118 ML BOTTLE TOP SCH (14:30)
[2019-03-23] MEDS: SODIUM HYPOCHLORITE 0.25% IRRIG 473 ML BOTTLE TOP SCH ×2 (14:30→14:44)
[2019-03-23 16:22] VITALS: BP 149/63
== END 2019-03-23 17:15 | disposition home or self-care (01) | DRG 580 ==
LOC: EDUNIT# → EDBD → N.ED 12:21 → N.EDINP 14:27 → SUATTDRO 14:27 → N.3E 16:32
PROVIDERS: ADMIT Family Medicine; ATTEND Internal Medicine

== ENCOUNTER 2019-04-16 18:05 | Inpatient (IN) ==
[2019-04-16 20:31] LABS: Basophils # 0.1 10*3/uL (0.0-0.2); Basophils % 0.9 % (0.0-0.8); Eosinophils # 0.1 10*3/uL (0.0-0.87); Eosinophils % 0.9 % (0.00-10.9); Hematocrit 38.5 VOL% (35.7-47.0); Hemoglobin 12.2 GM/DL (12.0-16.0); Immature Granulocytes % 0.4 %; Immature Granulocytes Absolute 0.06 #; Lymphocytes # 3.3 10*3/uL (1.4-4.0); Lymphocytes % 23.8 % (21.3-54.2); Mean Corpuscular HGB Conc 31.7 GM/DL (32-36); Mean Corpuscular Volume 87.5 FL (87-102); Mean Platelet Volume 11.9 FL (9.6-12.0); Monocytes % 8.8 % (1.7-12.7); NRBC # 0.03 10*3/uL; Neutrophils % 65.2 % (38.7-73.9); Platelet Count 124 T/CUMM (130-400); Red Cell Distribution Width 15.5 % (9.3-17.3); White Blood Count 13.9 T/CUMM (4-12)
[2019-04-16] MEDS ORDERED: SODIUM CHLORIDE 0.9% 1,000 ML IV STA (21:14)
[2019-04-16] MEDS ORDERED: cefTRIAXone 1,000 MG in SODIUM CHLORIDE 0.9% 100 ML IV STA (21:14)
[2019-04-16 22:16] LABS: Albumin 2.7 G/DL (3.4-5.0); Bilirubin,Total 0.8 MG/DL (0.2-1.0); Calcium 9.3 MG/DL (8.5-10.1); Total Protein 7.3 G/DL (6.4-8.3)
[2019-04-16] MEDS ORDERED: POTASSIUM CHLORIDE 20 MEQ/15 ML UDCUP PO ONE (22:18)
[2019-04-16 22:35] LABS: Bacteria,Urine Moderate /HPF (Few); Bilirubin,Urine Negative (Negative); Blood, Urine Moderate mg/dL (Negative); Glucose,Urine (UA) Negative (Negative); Ketones,Urine Negative (Negative); Nitrite,Urine Negative (Negative); Protein,Urine 30 MG/DL; Squamous Epithelial Cell,Urine Many /HPF (0-10); Urine Color Yellow (Yellow); Urine Specific Gravity 1.006 (1.001-1.035); Urine Urobilinogen < 2.0 EU/DL (0.2-1.0); WBC,Urine 89661 /HPF (0-6)
[2019-04-16 22:36] LABS: Apearance,Urine Turbid (Clear)
[2019-04-16 22:37] LABS: RBC,Urine 100 /HPF (0-4)
[2019-04-17] MEDS ORDERED: DEXTROSE 50% 25 GM/50 ML SYRINGE IV PRN (00:09)
[2019-04-17] MEDS ORDERED: GLUCAGON 1 MG VIAL IM PRN (00:09)
[2019-04-17] MEDS ORDERED: ACETAMINOPHEN 325 MG TABLET PO PRN (00:09)
[2019-04-17] MEDS ORDERED: POTASSIUM CHLORIDE INJ 40 MEQ in DEXTROSE 5% 1,000 ML IV SCH (00:30)
[2019-04-17] MEDS ORDERED: SODIUM CHLORIDE 0.9% 1,000 ML IV SCH (00:30)
[2019-04-17] MEDS ORDERED: PROMETHAZINE 25 MG/1 ML VIAL ONE (01:06)
[2019-04-17] MEDS ORDERED: PROMETHAZINE 25 MG/1 ML VIAL IM STA (01:11)
[2019-04-17] MEDS: guaiFENesin 200 MG/10 ML UDCUP PO PRN ×2 (02:59→21:15)
[2019-04-17] MEDS: ZALEPLON 5 MG CAPSULE PO PRN ×2 (02:59→21:15)
[2019-04-17] MEDS: SODIUM CHLOR 0.45% KCL 20 MEQ 20 MEQ/1,000 ML BAG IV SCH ×2 (02:59→14:18)
[2019-04-17] MEDS: INSULIN REGULAR 100 UNIT/ML SUBCUT SCH ×5 (03:35→20:17)
[2019-04-17 06:42] LABS: Basophils # 0.1 10*3/uL (0.0-0.2); Basophils % 0.8 % (0.0-0.8); Eosinophils # 0.1 10*3/uL (0.0-0.87); Eosinophils % 0.3 % (0.00-10.9); Hematocrit 34.7 VOL% (35.7-47.0); Hemoglobin 10.7 GM/DL (12.0-16.0); Immature Granulocytes % 0.7 %; Lymphocytes # 2.4 10*3/uL (1.4-4.0); Lymphocytes % 16.1 % (21.3-54.2); Mean Corpuscular HGB Conc 30.8 GM/DL (32-36); Mean Corpuscular Volume 88.7 FL (87-102); Monocytes % 7.7 % (1.7-12.7); NRBC # 0.05 10*3/uL; Neutrophils % 74.4 % (38.7-73.9); Platelet Count 157 T/CUMM (130-400); Red Blood Count 3.91 MC/CUMM (3.8-5.5); Red Cell Distribution Width 15.5 % (9.3-17.3); White Blood Count 14.9 T/CUMM (4-12)
[2019-04-17 07:01] LABS: Albumin 2.5 G/DL (3.4-5.0); Calcium 8.6 MG/DL (8.5-10.1); Total Protein 6.5 G/DL (6.4-8.3)
[2019-04-17] MEDS: PANTOPRAZOLE 40 MG TABLET PO SCH (10:22)
[2019-04-17] MEDS: ENOXAPARIN 30 MG/0.3 ML SYRINGE SUBCUT SCH (10:23)
[2019-04-17] MEDS: PROMETHAZINE 25 MG/1 ML VIAL IM PRN (14:15)
[2019-04-17] MEDS ORDERED: ZINC OXIDE PASTE 113 GM TUBE TOP PRN (15:30)
[2019-04-17] MEDS: ONDANSETRON 4 MG/2 ML VIAL IV PRN (20:15)
[2019-04-17] MEDS: cefTRIAXone 1,000 MG in SYRINGE 1 EACH IV SCH (20:17)
[2019-04-18] MEDS: SODIUM CHLOR 0.45% KCL 20 MEQ 20 MEQ/1,000 ML BAG IV SCH ×3 (01:24→17:53)
[2019-04-18] MEDS: PROMETHAZINE 25 MG/1 ML VIAL IM PRN (01:30)
[2019-04-18 06:28] LABS: Basophils # 0.1 10*3/uL (0.0-0.2); Basophils % 0.9 % (0.0-0.8); Eosinophils # 0.1 10*3/uL (0.0-0.87); Eosinophils % 0.8 % (0.00-10.9); Hematocrit 32.2 VOL% (35.7-47.0); Immature Granulocytes % 0.5 %; Immature Granulocytes Absolute 0.06 #; Lymphocytes # 3.2 10*3/uL (1.4-4.0); Lymphocytes % 29.4 % (21.3-54.2); Mean Corpuscular HGB Conc 31.1 GM/DL (32-36); Mean Corpuscular Volume 88.7 FL (87-102); Mean Platelet Volume 12.1 FL (9.6-12.0); Monocytes % 9.3 % (1.7-12.7); Neutrophils % 59.1 % (38.7-73.9); Platelet Count 132 T/CUMM (130-400); Red Blood Count 3.63 MC/CUMM (3.8-5.5); Red Cell Distribution Width 15.6 % (9.3-17.3)
[2019-04-18 06:55] LABS: Calcium 8.7 MG/DL (8.5-10.1)
[2019-04-18] MEDS: INSULIN REGULAR 100 UNIT/ML SUBCUT SCH ×4 (07:48→21:10)
[2019-04-18] MEDS ORDERED: DEXTROSE 10% 250 ML IV ONE (08:20)
[2019-04-18] MEDS: ONDANSETRON 4 MG/2 ML VIAL IV PRN ×2 (08:25→17:53)
[2019-04-18] MEDS ORDERED: MENTHOL/ZINC OXIDE OINT 71 GM JAR TOP PRN (08:58)
[2019-04-18] MEDS ORDERED: POLYETHYLENE GLYCOL POWDER 17 GM PACK PO PRN (08:58)
[2019-04-18] MEDS: ASPIRIN EC 81 MG TABLET PO SCH (09:45)
[2019-04-18] MEDS: MEMANTINE 10 MG TABLET PO SCH (09:46)
[2019-04-18] MEDS: THEOPHYLLINE ER 300 MG TABLET PO SCH (09:46)
[2019-04-18] MEDS: PANTOPRAZOLE 40 MG TABLET PO SCH (09:46)
[2019-04-18] MEDS: buPROPion SR 150 MG TABLET PO SCH ×2 (09:46→21:10)
[2019-04-18] MEDS: MAGNESIUM CHLORIDE 64 MG TABLET PO SCH ×2 (09:46→21:10)
[2019-04-18] MEDS: FLUoxetine 10 MG CAPSULE PO SCH (09:46)
[2019-04-18] MEDS: SODIUM HYPOCHLORITE 0.25% IRRIG 473 ML BOTTLE TOP SCH (09:46)
[2019-04-18] MEDS: MONTELUKAST 10 MG TABLET PO SCH (09:46)
[2019-04-18] MEDS: ENOXAPARIN 30 MG/0.3 ML SYRINGE SUBCUT SCH (09:46)
[2019-04-18] MEDS: BACLOFEN 10 MG TABLET PO SCH (09:46)
[2019-04-18] MEDS: VERAPAMIL 80 MG TABLET PO SCH (09:46)
[2019-04-18] MEDS: IPRATROPIUM 500 MCG/2.5 ML NEB RESP TX SCH ×3 (10:43→18:50)
[2019-04-18] MEDS ORDERED: ALBUTEROL 2.5 MG/3 ML NEB RESP TX PRN (11:00)
[2019-04-18] MEDS: carvediloL 6.25 MG TABLET PO SCH (17:53)
[2019-04-18] MEDS: DONEPEZIL 10 MG TABLET PO SCH (21:10)
[2019-04-18] MEDS: ZALEPLON 5 MG CAPSULE PO PRN (21:10)
[2019-04-18] MEDS: cefTRIAXone 1,000 MG in SYRINGE 1 EACH IV SCH (21:10)
[2019-04-19] MEDS: SODIUM CHLOR 0.45% KCL 20 MEQ 20 MEQ/1,000 ML BAG IV SCH ×3 (05:02→22:30)
[2019-04-19 05:11] LABS: Basophils # 0.1 10*3/uL (0.0-0.2); Basophils % 1.3 % (0.0-0.8); Eosinophils # 0.1 10*3/uL (0.0-0.87); Eosinophils % 1.5 % (0.00-10.9); Hematocrit 33.2 VOL% (35.7-47.0); Hemoglobin 10.2 GM/DL (12.0-16.0); Immature Granulocytes % 0.5 %; Immature Granulocytes Absolute 0.05 #; Lymphocytes % 31.3 % (21.3-54.2); Mean Corpuscular HGB Conc 30.7 GM/DL (32-36); Mean Corpuscular Volume 87.8 FL (87-102); Mean Platelet Volume 12.4 FL (9.6-12.0); Monocytes % 10.1 % (1.7-12.7); NRBC # 0.02 10*3/uL; Neutrophils % 55.3 % (38.7-73.9); Platelet Count 131 T/CUMM (130-400); Red Blood Count 3.78 MC/CUMM (3.8-5.5); Red Cell Distribution Width 15.8 % (9.3-17.3); White Blood Count 9.4 T/CUMM (4-12)
[2019-04-19 05:58] LABS: Calcium 8.5 MG/DL (8.5-10.1); Osmolality,Calculated 257.8 MOS/KG (273-304)
[2019-04-19] MEDS ORDERED: DEXTROSE 10% 250 ML IV ONE (07:09)
[2019-04-19] MEDS: IPRATROPIUM 500 MCG/2.5 ML NEB RESP TX SCH ×4 (08:30→19:25)
[2019-04-19] MEDS: PANTOPRAZOLE 40 MG TABLET PO SCH (08:38)
[2019-04-19] MEDS: MEMANTINE 10 MG TABLET PO SCH (08:38)
[2019-04-19] MEDS: THEOPHYLLINE ER 300 MG TABLET PO SCH (08:38)
[2019-04-19] MEDS: carvediloL 6.25 MG TABLET PO SCH (08:39)
[2019-04-19] MEDS: buPROPion SR 150 MG TABLET PO SCH ×2 (08:39→22:28)
[2019-04-19] MEDS: INSULIN REGULAR 100 UNIT/ML SUBCUT SCH ×4 (08:39→22:29)
[2019-04-19] MEDS: MONTELUKAST 10 MG TABLET PO SCH (08:39)
[2019-04-19] MEDS: FLUoxetine 10 MG CAPSULE PO SCH (08:39)
[2019-04-19] MEDS: VERAPAMIL 80 MG TABLET PO SCH (08:39)
[2019-04-19] MEDS: ONDANSETRON 4 MG/2 ML VIAL IV PRN ×2 (08:39→19:38)
[2019-04-19] MEDS: BACLOFEN 10 MG TABLET PO SCH ×2 (08:40→22:34)
[2019-04-19] MEDS: MAGNESIUM CHLORIDE 64 MG TABLET PO SCH ×2 (08:40→22:29)
[2019-04-19] MEDS: SODIUM HYPOCHLORITE 0.25% IRRIG 473 ML BOTTLE TOP SCH (08:40)
[2019-04-19] MEDS: ASPIRIN EC 81 MG TABLET PO SCH (08:41)
[2019-04-19] MEDS: ENOXAPARIN 30 MG/0.3 ML SYRINGE SUBCUT SCH (08:41)
[2019-04-19] MEDS ORDERED: METOPROLOL TARTRATE 5 MG/5 ML VIAL IV ONE (09:02)
[2019-04-19] MEDS: CIPROFLOXACIN INJ 400 MG in PREMIX 1 EACH IV SCH ×2 (09:44→23:33)
[2019-04-19] MEDS: METOPROLOL TARTRATE 5 MG/5 ML VIAL IV SCH ×4 (11:33→12:17)
[2019-04-19] MEDS: metroNIDAZOLE INJ 500 MG in PREMIX 1 EACH IV SCH ×2 (12:11→22:32)
[2019-04-19] MEDS ORDERED: SODIUM CHLORIDE 0.9% 500 ML IV ONE (13:21)
[2019-04-19] MEDS: ZALEPLON 5 MG CAPSULE PO PRN (22:28)
[2019-04-19] MEDS: DONEPEZIL 10 MG TABLET PO SCH (22:28)
[2019-04-19] MEDS: carvediloL 12.5 MG TABLET PO SCH (22:28)
[2019-04-20] MEDS ORDERED: diphenhydrAMINE CAP 25 MG CAPSULE PO ONE ×2 (00:01→07:00)
[2019-04-20] MEDS ORDERED: DIAZEPAM 5 MG TABLET PO ONE ×2 (00:01→07:00)
[2019-04-20 03:49] LABS: Basophils # 0.1 10*3/uL (0.0-0.2); Basophils % 1.2 % (0.0-0.8); Eosinophils # 0.2 10*3/uL (0.0-0.87); Eosinophils % 2.8 % (0.00-10.9); Hematocrit 31.7 VOL% (35.7-47.0); Immature Granulocytes % 0.5 %; Immature Granulocytes Absolute 0.04 #; Lymphocytes # 2.5 10*3/uL (1.4-4.0); Lymphocytes % 33.1 % (21.3-54.2); Mean Corpuscular HGB Conc 31.5 GM/DL (32-36); Mean Corpuscular Volume 85.9 FL (87-102); Monocytes % 10.1 % (1.7-12.7); NRBC # 0.02 10*3/uL; Neutrophils % 52.3 % (38.7-73.9); Platelet Count 123 T/CUMM (130-400); Red Blood Count 3.69 MC/CUMM (3.8-5.5); Red Cell Distribution Width 15.9 % (9.3-17.3); White Blood Count 7.6 T/CUMM (4-12)
[2019-04-20 04:01] LABS: INR 1.4; PT Patient Result 14.7 SECS (9.6-12.2)
[2019-04-20 04:15] LABS: Calcium 8.5 MG/DL (8.5-10.1); Osmolality,Calculated 269.8 MOS/KG (273-304)
[2019-04-20] MEDS ORDERED: LIDOCAINE 2% TOP JELLY 20 ML VIAL INTRAURETH ONE (06:18)
[2019-04-20] MEDS: metroNIDAZOLE INJ 500 MG in PREMIX 1 EACH IV SCH ×3 (07:14→21:30)
[2019-04-20] MEDS ORDERED: MAGNESIUM SULF RIDER 4 GM in PREMIX 1 EACH IV ONE (07:25)
[2019-04-20] MEDS: IPRATROPIUM 500 MCG/2.5 ML NEB RESP TX SCH ×4 (07:52→19:22)
[2019-04-20 07:55] LABS: Apearance,Urine CLEAR (Clear); Bacteria,Urine Occasional /HPF (Few); Bilirubin,Urine Negative (Negative); Blood, Urine Moderate mg/dL (Negative); Glucose,Urine (UA) Negative (Negative); Ketones,Urine Negative (Negative); Nitrite,Urine Negative (Negative); Protein,Urine Negative; RBC,Urine 4 /HPF (0-4); Urine Color Colorless (Yellow); Urine Specific Gravity 1.004 (1.001-1.035); Urine Urobilinogen < 2.0 EU/DL (0.2-1.0); WBC,Urine 9 /HPF (0-6)
[2019-04-20] MEDS ORDERED: DEXTROSE 10% 250 ML IV ONE (08:21)
[2019-04-20] MEDS: INSULIN REGULAR 100 UNIT/ML SUBCUT SCH ×4 (08:43→22:38)
[2019-04-20] MEDS: SODIUM HYPOCHLORITE 0.25% IRRIG 473 ML BOTTLE TOP SCH (10:05)
[2019-04-20] MEDS: CIPROFLOXACIN INJ 400 MG in PREMIX 1 EACH IV SCH ×2 (10:05→22:34)
[2019-04-20] MEDS: ASPIRIN EC 81 MG TABLET PO SCH (10:06)
[2019-04-20] MEDS: BACLOFEN 10 MG TABLET PO SCH ×2 (10:06→21:34)
[2019-04-20] MEDS: ENOXAPARIN 30 MG/0.3 ML SYRINGE SUBCUT SCH (10:06)
[2019-04-20] MEDS: MEMANTINE 10 MG TABLET PO SCH (10:06)
[2019-04-20] MEDS: FLUoxetine 10 MG CAPSULE PO SCH (10:07)
[2019-04-20] MEDS: PANTOPRAZOLE 40 MG TABLET PO SCH (10:07)
[2019-04-20] MEDS: MONTELUKAST 10 MG TABLET PO SCH (10:07)
[2019-04-20] MEDS: MAGNESIUM CHLORIDE 64 MG TABLET PO SCH ×2 (10:07→21:34)
[2019-04-20] MEDS: buPROPion SR 150 MG TABLET PO SCH ×2 (10:07→21:34)
[2019-04-20] MEDS: SODIUM CHLOR 0.45% KCL 20 MEQ 20 MEQ/1,000 ML BAG IV SCH ×2 (10:07→22:50)
[2019-04-20] MEDS: THEOPHYLLINE ER 300 MG TABLET PO SCH (10:07)
[2019-04-20] MEDS: VERAPAMIL 80 MG TABLET PO SCH (10:52)
[2019-04-20] MEDS: carvediloL 12.5 MG TABLET PO SCH ×2 (10:52→21:33)
[2019-04-20] MEDS ORDERED: MAGNESIUM SULF RIDER 4 GM in PREMIX 1 EACH IV PRN (13:18)
[2019-04-20] MEDS ORDERED: POTASSIUM CHLORIDE RIDER 10 MEQ in PREMIX 1 EACH IV PRN (13:18)
[2019-04-20] MEDS ORDERED: MAGNESIUM SULF RIDER 2 GM in PREMIX 1 EACH IV PRN (13:18)
[2019-04-20] MEDS: DONEPEZIL 10 MG TABLET PO SCH (21:33)
[2019-04-20] MEDS: ZALEPLON 5 MG CAPSULE PO PRN (21:34)
[2019-04-20] MEDS: ONDANSETRON 4 MG/2 ML VIAL IV PRN (21:42)
[2019-04-21] MEDS: metroNIDAZOLE INJ 500 MG in PREMIX 1 EACH IV SCH ×3 (04:13→22:50)
[2019-04-21 05:23] LABS: Basophils # 0.1 10*3/uL (0.0-0.2); Eosinophils # 0.2 10*3/uL (0.0-0.87); Eosinophils % 2.1 % (0.00-10.9); Hematocrit 32.6 VOL% (35.7-47.0); Hemoglobin 10.2 GM/DL (12.0-16.0); Immature Granulocytes % 0.6 %; Immature Granulocytes Absolute 0.05 #; Lymphocytes # 1.7 10*3/uL (1.4-4.0); Lymphocytes % 21.9 % (21.3-54.2); Mean Corpuscular HGB Conc 31.3 GM/DL (32-36); Mean Corpuscular Volume 87.2 FL (87-102); Mean Platelet Volume 12.2 FL (9.6-12.0); Monocytes % 9.5 % (1.7-12.7); NRBC # 0.03 10*3/uL; Neutrophils % 64.9 % (38.7-73.9); Platelet Count 165 T/CUMM (130-400); Red Blood Count 3.74 MC/CUMM (3.8-5.5); White Blood Count 7.9 T/CUMM (4-12)
[2019-04-21 05:51] LABS: Albumin 2.1 G/DL (3.4-5.0); Bilirubin,Total 1.2 MG/DL (0.2-1.0); Calcium 8.6 MG/DL (8.5-10.1); Osmolality,Calculated 270.8 MOS/KG (273-304); Total Protein 5.5 G/DL (6.4-8.3)
[2019-04-21] MEDS: IPRATROPIUM 500 MCG/2.5 ML NEB RESP TX SCH ×4 (07:20→19:08)
[2019-04-21] MEDS ORDERED: SODIUM PHOSPHATE INJ 30 MMOL in SODIUM CHLORIDE 0.9% 250 ML IV ONE (07:30)
[2019-04-21] MEDS: INSULIN REGULAR 100 UNIT/ML SUBCUT SCH ×4 (09:16→21:51)
[2019-04-21] MEDS ORDERED: LIDOCAINE 2% 5 ML VIAL ONE (10:31)
[2019-04-21] MEDS ORDERED: SEVOFLURANE 1 UNIT/15 MINUTE INH ONE (10:31)
[2019-04-21] MEDS ORDERED: PHENYLEPHRINE 1 MG/10 ML SYRINGE IV ONE (10:32)
[2019-04-21] MEDS ORDERED: ETOMIDATE 40 MG/20 ML VIAL IV ONE (10:32)
[2019-04-21] MEDS ORDERED: fentaNYL 100 MCG/2 ML VIAL ONE (10:32)
[2019-04-21] MEDS: CIPROFLOXACIN INJ 400 MG in PREMIX 1 EACH IV SCH ×2 (16:33→21:18)
[2019-04-21] MEDS: carvediloL 12.5 MG TABLET PO SCH ×2 (16:33→21:20)
[2019-04-21] MEDS: BACLOFEN 10 MG TABLET PO SCH ×2 (16:34→21:19)
[2019-04-21] MEDS: SODIUM HYPOCHLORITE 0.25% IRRIG 473 ML BOTTLE TOP SCH (16:34)
[2019-04-21] MEDS: ASPIRIN EC 81 MG TABLET PO SCH ×2 (16:44→17:41)
[2019-04-21] MEDS: MONTELUKAST 10 MG TABLET PO SCH ×2 (16:44→17:41)
[2019-04-21] MEDS: VERAPAMIL 80 MG TABLET PO SCH (16:44)
[2019-04-21] MEDS: MAGNESIUM CHLORIDE 64 MG TABLET PO SCH ×3 (16:44→21:20)
[2019-04-21] MEDS: buPROPion SR 150 MG TABLET PO SCH ×2 (16:44→21:20)
[2019-04-21] MEDS: FLUoxetine 10 MG CAPSULE PO SCH (16:44)
[2019-04-21] MEDS: MEMANTINE 10 MG TABLET PO SCH (16:45)
[2019-04-21] MEDS: PANTOPRAZOLE 40 MG TABLET PO SCH (16:45)
[2019-04-21] MEDS: THEOPHYLLINE ER 300 MG TABLET PO SCH (16:45)
[2019-04-21] MEDS: ONDANSETRON 4 MG/2 ML VIAL IV PRN (17:04)
[2019-04-21] MEDS: SODIUM CHLOR 0.45% KCL 20 MEQ 20 MEQ/1,000 ML BAG IV SCH (17:37)
[2019-04-21] MEDS ORDERED: MORPHINE 4 MG/1 ML VIAL IV PRN (18:40)
[2019-04-21] MEDS ORDERED: diphenhydrAMINE CAP 25 MG CAPSULE PO PRN (18:46)
[2019-04-21] MEDS: DONEPEZIL 10 MG TABLET PO SCH (21:19)
[2019-04-22] MEDS: metroNIDAZOLE INJ 500 MG in PREMIX 1 EACH IV SCH ×3 (04:23→20:43)
[2019-04-22 05:26] LABS: Basophils # 0.1 10*3/uL (0.0-0.2); Basophils % 0.6 % (0.0-0.8); Eosinophils % 0.2 % (0.00-10.9); Hematocrit 27.9 VOL% (35.7-47.0); Hemoglobin 8.8 GM/DL (12.0-16.0); Immature Granulocytes % 0.6 %; Immature Granulocytes Absolute 0.08 #; Lymphocytes # 2.4 10*3/uL (1.4-4.0); Lymphocytes % 19.1 % (21.3-54.2); Mean Corpuscular HGB Conc 31.5 GM/DL (32-36); Mean Corpuscular Volume 86.9 FL (87-102); Monocytes % 8.7 % (1.7-12.7); NRBC # 0.03 10*3/uL; Neutrophils % 70.8 % (38.7-73.9); Platelet Count 161 T/CUMM (130-400); Red Blood Count 3.21 MC/CUMM (3.8-5.5); Red Cell Distribution Width 16.1 % (9.3-17.3); White Blood Count 12.4 T/CUMM (4-12)
[2019-04-22 06:05] LABS: Burr Cells Slight; Hypochromasia 1+; Ovalocytes Slight; Platelet Estimate Adequate
[2019-04-22 06:14] LABS: Alanine Aminotransferase < 6 U/L (13-56); Albumin 1.9 G/DL (3.4-5.0); Alkaline Phosphatase 92 U/L (45-117); Aspartate Amino Transferase 12 U/L (0-37); Blood Urea Nitrogen 7 MG/DL (7-18); Estimated Glom Filtration Rate 42 ML/MIN; Glucose 118 MG/DL (74-106); Total Protein 4.7 G/DL (6.4-8.3)
[2019-04-22] MEDS ORDERED: MAGNESIUM SULF RIDER 4 GM in PREMIX 1 EACH IV ONE (06:40)
[2019-04-22] MEDS ORDERED: SODIUM PHOSPHATE INJ 15 MMOL in SODIUM CHLORIDE 0.9% 250 ML IV ONE (06:41)
[2019-04-22] MEDS ORDERED: SODIUM PHOSPHATE INJ 30 MMOL in SODIUM CHLORIDE 0.9% 250 ML IV ONE (07:30)
[2019-04-22] MEDS: IPRATROPIUM 500 MCG/2.5 ML NEB RESP TX SCH ×4 (07:38→20:28)
[2019-04-22] MEDS: CIPROFLOXACIN INJ 400 MG in PREMIX 1 EACH IV SCH ×2 (08:46→22:28)
[2019-04-22] MEDS: buPROPion SR 150 MG TABLET PO SCH ×2 (08:51→20:41)
[2019-04-22] MEDS: MAGNESIUM CHLORIDE 64 MG TABLET PO SCH ×2 (08:51→20:41)
[2019-04-22] MEDS: carvediloL 12.5 MG TABLET PO SCH ×2 (08:51→20:42)
[2019-04-22] MEDS: THEOPHYLLINE ER 300 MG TABLET PO SCH (08:51)
[2019-04-22] MEDS: ASPIRIN EC 81 MG TABLET PO SCH (08:51)
[2019-04-22] MEDS: MONTELUKAST 10 MG TABLET PO SCH (08:52)
[2019-04-22] MEDS: BACLOFEN 10 MG TABLET PO SCH ×2 (08:52→20:41)
[2019-04-22] MEDS: PANTOPRAZOLE 40 MG TABLET PO SCH (08:52)
[2019-04-22] MEDS: VERAPAMIL 80 MG TABLET PO SCH (08:52)
[2019-04-22] MEDS: MEMANTINE 10 MG TABLET PO SCH (08:52)
[2019-04-22] MEDS: FLUoxetine 10 MG CAPSULE PO SCH (08:52)
[2019-04-22] MEDS: INSULIN REGULAR 100 UNIT/ML SUBCUT SCH ×4 (09:09→23:46)
[2019-04-22] MEDS: SODIUM CHLOR 0.45% KCL 20 MEQ 20 MEQ/1,000 ML BAG IV SCH ×2 (15:26)
[2019-04-22] MEDS: SODIUM HYPOCHLORITE 0.25% IRRIG 473 ML BOTTLE TOP SCH (15:27)
[2019-04-22] MEDS: DONEPEZIL 10 MG TABLET PO SCH (20:43)
[2019-04-23] MEDS: metroNIDAZOLE INJ 500 MG in PREMIX 1 EACH IV SCH ×2 (03:59→12:25)
[2019-04-23 05:35] LABS: Basophils # 0.1 10*3/uL (0.0-0.2); Basophils % 0.7 % (0.0-0.8); Eosinophils # 0.1 10*3/uL (0.0-0.87); Eosinophils % 0.9 % (0.00-10.9); Hematocrit 27.2 VOL% (35.7-47.0); Hemoglobin 8.4 GM/DL (12.0-16.0); Immature Granulocytes % 0.7 %; Immature Granulocytes Absolute 0.06 #; Lymphocytes # 1.4 10*3/uL (1.4-4.0); Lymphocytes % 15.5 % (21.3-54.2); Mean Corpuscular HGB Conc 30.9 GM/DL (32-36); Mean Corpuscular Volume 88.3 FL (87-102); Mean Platelet Volume 11.9 FL (9.6-12.0); Monocytes % 6.5 % (1.7-12.7); Neutrophils % 75.7 % (38.7-73.9); Platelet Count 139 T/CUMM (130-400); Red Blood Count 3.08 MC/CUMM (3.8-5.5); Red Cell Distribution Width 16.2 % (9.3-17.3); White Blood Count 8.9 T/CUMM (4-12)
[2019-04-23 05:54] LABS: Alanine Aminotransferase < 9 U/L (13-56); Albumin 1.8 G/DL (3.4-5.0); Alkaline Phosphatase 86 U/L (45-117); Aspartate Amino Transferase 11 U/L (0-37); Blood Urea Nitrogen 8 MG/DL (7-18); Calcium 7.9 MG/DL (8.5-10.1); Estimated Glom Filtration Rate 38 ML/MIN; Glucose 114 MG/DL (74-106); Total Protein 4.9 G/DL (6.4-8.3)
[2019-04-23] MEDS: IPRATROPIUM 500 MCG/2.5 ML NEB RESP TX SCH ×2 (07:10→10:54)
[2019-04-23] MEDS: INSULIN REGULAR 100 UNIT/ML SUBCUT SCH ×3 (08:43→17:14)
[2019-04-23] MEDS: BACLOFEN 10 MG TABLET PO SCH (08:46)
[2019-04-23] MEDS: MEMANTINE 10 MG TABLET PO SCH (08:46)
[2019-04-23] MEDS: PANTOPRAZOLE 40 MG TABLET PO SCH (08:46)
[2019-04-23] MEDS: ASPIRIN EC 81 MG TABLET PO SCH (08:46)
[2019-04-23] MEDS: buPROPion SR 150 MG TABLET PO SCH (08:46)
[2019-04-23] MEDS: carvediloL 12.5 MG TABLET PO SCH (08:46)
[2019-04-23] MEDS: THEOPHYLLINE ER 300 MG TABLET PO SCH (08:46)
[2019-04-23] MEDS: FLUoxetine 10 MG CAPSULE PO SCH (08:46)
[2019-04-23] MEDS: VERAPAMIL 80 MG TABLET PO SCH (08:47)
[2019-04-23] MEDS: MAGNESIUM CHLORIDE 64 MG TABLET PO SCH (08:47)
[2019-04-23] MEDS: CIPROFLOXACIN INJ 400 MG in PREMIX 1 EACH IV SCH (08:47)
[2019-04-23] MEDS: SODIUM HYPOCHLORITE 0.25% IRRIG 473 ML BOTTLE TOP SCH (08:47)
[2019-04-23] MEDS: MONTELUKAST 10 MG TABLET PO SCH (08:47)
[2019-04-23] MEDS: SODIUM CHLOR 0.45% KCL 20 MEQ 20 MEQ/1,000 ML BAG IV SCH (08:48)
[2019-04-23] MEDS ORDERED: SODIUM PHOSPHATE ENEMA 133 ML BOTTLE RECTAL ONE (10:03)
[2019-04-23] MEDS ORDERED: FLUCONAZOLE INJ 100 MG in IV BAG 1 EACH IV ONE (10:44)
[2019-04-23] MEDS: ONDANSETRON 4 MG/2 ML VIAL IV PRN (12:45)
[2019-04-23] MEDS ORDERED: LINACLOTIDE 145 MCG CAPSULE PO ONE (13:00)
[2019-04-23 17:07] VITALS: BP 101/68
== END 2019-04-23 17:14 | DRG 907 ==
LOC: EDBD → EDUNIT# → EDSEX → N.EDINP 18:05 → N.ED 18:05 → SUATTDRO 04-17 00:09 → N.5E 04-17 00:59 → SUATTDRO 04-19 13:07
PROVIDERS: ADMIT Family Medicine; ATTEND Internal Medicine

== ENCOUNTER 2019-04-27 18:08 | Observation (INO) ==
[2019-04-27] MEDS ORDERED: SODIUM CHLORIDE 0.9% 500 ML IV STA (18:36)
[2019-04-27 19:26] LABS: Apearance,Urine CLOUDY (Clear); Bilirubin,Urine Negative (Negative); Blood, Urine Small mg/dL (Negative); Glucose,Urine (UA) Negative (Negative); Ketones,Urine Negative (Negative); Nitrite,Urine Negative (Negative); Protein,Urine 30 MG/DL; RBC,Urine 135 /HPF (0-4); Urine Color Yellow (Yellow); Urine Urobilinogen < 2.0 EU/DL (0.2-1.0); WBC,Urine 4686 /HPF (0-6)
[2019-04-27] MEDS ORDERED: cefTRIAXone 1,000 MG in SODIUM CHLORIDE 0.9% 100 ML IV STA (19:41)
[2019-04-27 19:49] LABS: Basophils # 0.1 10*3/uL (0.0-0.2); Basophils % 0.6 % (0.0-0.8); Eosinophils % 0.3 % (0.00-10.9); Hematocrit 29.3 VOL% (35.7-47.0); Hemoglobin 9.3 GM/DL (12.0-16.0); Immature Granulocytes % 0.6 %; Immature Granulocytes Absolute 0.05 #; Lymphocytes # 1.5 10*3/uL (1.4-4.0); Lymphocytes % 17.3 % (21.3-54.2); Mean Corpuscular HGB Conc 31.7 GM/DL (32-36); Mean Corpuscular Volume 85.7 FL (87-102); Mean Platelet Volume 12.2 FL (9.6-12.0); Monocytes % 10.1 % (1.7-12.7); NRBC # 0.04 10*3/uL; Neutrophils % 71.1 % (38.7-73.9); Platelet Count 191 T/CUMM (130-400); Red Blood Count 3.42 MC/CUMM (3.8-5.5); Red Cell Distribution Width 16.8 % (9.3-17.3); White Blood Count 8.7 T/CUMM (4-12)
[2019-04-27 19:59] LABS: Barbiturates Screen,Urine Negative (Negative); Benzodiazepines Screen,Urine Negative (Negative); Cannabinoid Screen,Urine Negative (Negative); Opiate Screen,Urine Positive (Negative); Phencyclidine Screen,Urine Negative (Negative)
[2019-04-27 20:14] LABS: Alanine Aminotransferase 10 U/L (13-56); Albumin 2.4 G/DL (3.4-5.0); Alkaline Phosphatase 105 U/L (45-117); Aspartate Amino Transferase 14 U/L (0-37); Blood Urea Nitrogen 13 MG/DL (7-18); Calcium 9.2 MG/DL (8.5-10.1); Estimated Glom Filtration Rate 32 ML/MIN; Glucose 126 MG/DL (74-106); Total Protein 6.5 G/DL (6.4-8.3); Troponin I 0.033 NG/ML (0.00-0.045)
[2019-04-27] MEDS ORDERED: MAGNESIUM SULF RIDER 2 GM in PREMIX 1 EACH IV STA (20:15)
[2019-04-27] MEDS ORDERED: ZALEPLON 5 MG CAPSULE PO PRN (23:11)
[2019-04-27] MEDS ORDERED: ACETAMINOPHEN 325 MG TABLET PO PRN (23:11)
[2019-04-27] MEDS ORDERED: DEXTROSE 50% 25 GM/50 ML SYRINGE IV PRN (23:11)
[2019-04-27] MEDS ORDERED: GLUCAGON 1 MG VIAL IM PRN (23:11)
[2019-04-27] MEDS ORDERED: ONDANSETRON 4 MG/2 ML VIAL IV PRN (23:11)
[2019-04-27] MEDS: SODIUM CHLORIDE 0.9% 1,000 ML IV SCH (23:51)
[2019-04-27] MEDS: ENOXAPARIN 30 MG/0.3 ML SYRINGE SUBCUT SCH (23:51)
[2019-04-28] MEDS ORDERED: ZINC OXIDE PASTE 113 GM TUBE TOP PRN (00:13)
[2019-04-28] MEDS ORDERED: MENTHOL/ZINC OXIDE OINT 71 GM JAR TOP PRN (00:13)
[2019-04-28] MEDS ORDERED: LOPERAMIDE 2 MG CAPSULE PO PRN (00:13)
[2019-04-28] MEDS ORDERED: HYDROCORTISONE 1% CREAM 28 GM TUBE TOP PRN (00:13)
[2019-04-28] MEDS ORDERED: ALBUTEROL 2.5 MG/3 ML NEB RESP TX PRN (00:13)
[2019-04-28] MEDS ORDERED: POLYETHYLENE GLYCOL POWDER 17 GM PACK PO PRN (00:13)
[2019-04-28] MEDS ORDERED: PROMETHAZINE 25 MG/1 ML VIAL IM PRN (00:13)
[2019-04-28] MEDS: FLUCONAZOLE 100 MG TABLET PO SCH (01:41)
[2019-04-28] MEDS: MELATONIN 3 MG TABLET PO SCH ×2 (01:42→22:03)
[2019-04-28 06:34] LABS: Basophils % 0.4 % (0.0-0.8); Eosinophils # 0.1 10*3/uL (0.0-0.87); Eosinophils % 0.5 % (0.00-10.9); Hematocrit 28.2 VOL% (35.7-47.0); Hemoglobin 8.7 GM/DL (12.0-16.0); Immature Granulocytes % 1.3 %; Immature Granulocytes Absolute 0.12 #; Lymphocytes # 1.5 10*3/uL (1.4-4.0); Mean Corpuscular HGB Conc 30.9 GM/DL (32-36); Mean Corpuscular Volume 86.8 FL (87-102); Mean Platelet Volume 12.4 FL (9.6-12.0); Monocytes % 9.6 % (1.7-12.7); NRBC # 0.06 10*3/uL; Neutrophils % 72.2 % (38.7-73.9); Platelet Count 198 T/CUMM (130-400); Red Blood Count 3.25 MC/CUMM (3.8-5.5); White Blood Count 9.5 T/CUMM (4-12)
[2019-04-28 06:55] LABS: Alanine Aminotransferase < 9 U/L (13-56); Albumin 2.2 G/DL (3.4-5.0); Alkaline Phosphatase 99 U/L (45-117); Aspartate Amino Transferase 19 U/L (0-37); Blood Urea Nitrogen 12 MG/DL (7-18); Estimated Glom Filtration Rate 40 ML/MIN; Glucose 107 MG/DL (74-106); Osmolality,Calculated 278.4 MOS/KG (273-304)
[2019-04-28] MEDS: IPRATROPIUM 500 MCG/2.5 ML NEB RESP TX SCH ×4 (07:10→19:27)
[2019-04-28] MEDS: VERAPAMIL 80 MG TABLET PO SCH (09:20)
[2019-04-28] MEDS: ASPIRIN EC 81 MG TABLET PO SCH (09:20)
[2019-04-28] MEDS: PANTOPRAZOLE 40 MG TABLET PO SCH (09:20)
[2019-04-28] MEDS: MONTELUKAST 10 MG TABLET PO SCH (09:20)
[2019-04-28] MEDS: BACLOFEN 10 MG TABLET PO SCH (09:21)
[2019-04-28] MEDS: POTASSIUM CHLORIDE 20 MEQ TABLET PO SCH (09:21)
[2019-04-28] MEDS: MAGNESIUM CHLORIDE 64 MG TABLET PO SCH ×2 (09:21→22:03)
[2019-04-28] MEDS: carvediloL 12.5 MG TABLET PO SCH ×2 (09:21→17:26)
[2019-04-28] MEDS: THEOPHYLLINE ER 300 MG TABLET PO SCH (09:21)
[2019-04-28] MEDS: CYPROHEPTADINE 4 MG TABLET PO SCH (09:21)
[2019-04-28] MEDS: ONDANSETRON ODT 4 MG TABLET PO SCH ×4 (09:24→22:06)
[2019-04-28] MEDS: MEMANTINE 10 MG TABLET PO SCH (11:28)
[2019-04-28] MEDS: buPROPion SR 150 MG TABLET PO SCH ×2 (11:28→22:05)
[2019-04-28] MEDS: cefTRIAXone 1,000 MG in SYRINGE 1 EACH IV SCH (22:03)
[2019-04-28] MEDS: traZODone 50 MG TABLET PO SCH (22:03)
[2019-04-28] MEDS: ENOXAPARIN 30 MG/0.3 ML SYRINGE SUBCUT SCH (22:04)
[2019-04-28] MEDS: DONEPEZIL 10 MG TABLET PO SCH (22:04)
[2019-04-29 06:18] LABS: Basophils # 0.1 10*3/uL (0.0-0.2); Basophils % 0.8 % (0.0-0.8); Eosinophils % 0.3 % (0.00-10.9); Hematocrit 26.6 VOL% (35.7-47.0); Hemoglobin 8.3 GM/DL (12.0-16.0); Immature Granulocytes % 0.5 %; Immature Granulocytes Absolute 0.03 #; Lymphocytes # 2.4 10*3/uL (1.4-4.0); Lymphocytes % 38.1 % (21.3-54.2); Mean Corpuscular HGB Conc 31.2 GM/DL (32-36); Mean Corpuscular Volume 85.3 FL (87-102); Mean Platelet Volume 12.2 FL (9.6-12.0); Monocytes % 12.9 % (1.7-12.7); NRBC # 0.06 10*3/uL; Neutrophils % 47.4 % (38.7-73.9); Platelet Count 192 T/CUMM (130-400); Red Blood Count 3.12 MC/CUMM (3.8-5.5); Red Cell Distribution Width 17.1 % (9.3-17.3); White Blood Count 6.4 T/CUMM (4-12)
[2019-04-29 06:30] LABS: Calcium 8.8 MG/DL (8.5-10.1)
[2019-04-29] MEDS: IPRATROPIUM 500 MCG/2.5 ML NEB RESP TX SCH ×4 (07:20→20:05)
[2019-04-29] MEDS: FLUCONAZOLE 100 MG TABLET PO SCH (08:26)
[2019-04-29] MEDS: POTASSIUM CHLORIDE 20 MEQ TABLET PO SCH (08:26)
[2019-04-29] MEDS: buPROPion SR 150 MG TABLET PO SCH ×2 (08:27→20:46)
[2019-04-29] MEDS: THEOPHYLLINE ER 300 MG TABLET PO SCH (08:27)
[2019-04-29] MEDS: PANTOPRAZOLE 40 MG TABLET PO SCH (08:27)
[2019-04-29] MEDS: ASPIRIN EC 81 MG TABLET PO SCH (08:27)
[2019-04-29] MEDS: MONTELUKAST 10 MG TABLET PO SCH (08:27)
[2019-04-29] MEDS: carvediloL 12.5 MG TABLET PO SCH ×2 (08:27→17:17)
[2019-04-29] MEDS: ONDANSETRON ODT 4 MG TABLET PO SCH ×4 (08:27→20:46)
[2019-04-29] MEDS: CYPROHEPTADINE 4 MG TABLET PO SCH (08:27)
[2019-04-29] MEDS: MAGNESIUM CHLORIDE 64 MG TABLET PO SCH ×2 (08:28→20:46)
[2019-04-29] MEDS: BACLOFEN 10 MG TABLET PO SCH (08:28)
[2019-04-29] MEDS: VERAPAMIL 80 MG TABLET PO SCH (08:28)
[2019-04-29] MEDS: MEMANTINE 10 MG TABLET PO SCH (12:14)
[2019-04-29] MEDS: SODIUM CHLORIDE 0.9% 1,000 ML IV SCH (17:16)
[2019-04-29 19:34] LABS: Hematocrit 26.9 VOL% (35.7-47.0); Hemoglobin 8.3 GM/DL (12.0-16.0)
[2019-04-29] MEDS: ENOXAPARIN 30 MG/0.3 ML SYRINGE SUBCUT SCH (20:46)
[2019-04-29] MEDS: MELATONIN 3 MG TABLET PO SCH (20:46)
[2019-04-29] MEDS: DONEPEZIL 10 MG TABLET PO SCH (20:46)
[2019-04-29] MEDS: cefTRIAXone 1,000 MG in SYRINGE 1 EACH IV SCH (20:47)
[2019-04-29] MEDS: traZODone 50 MG TABLET PO SCH (20:47)
[2019-04-30] MEDS ORDERED: guaiFENesin 200 MG/10 ML UDCUP PO PRN (03:19)
[2019-04-30 05:33] LABS: Basophils % 0.6 % (0.0-0.8); Eosinophils # 0.1 10*3/uL (0.0-0.87); Eosinophils % 1.9 % (0.00-10.9); Hematocrit 27.1 VOL% (35.7-47.0); Hemoglobin 8.2 GM/DL (12.0-16.0); Immature Granulocytes % 0.7 %; Immature Granulocytes Absolute 0.05 #; Lymphocytes # 2.1 10*3/uL (1.4-4.0); Lymphocytes % 29.2 % (21.3-54.2); Mean Corpuscular HGB Conc 30.3 GM/DL (32-36); Mean Corpuscular Volume 86.9 FL (87-102); NRBC # 0.03 10*3/uL; Neutrophils % 58.6 % (38.7-73.9); Platelet Count 185 T/CUMM (130-400); Red Blood Count 3.12 MC/CUMM (3.8-5.5); Red Cell Distribution Width 17.3 % (9.3-17.3)
[2019-04-30 05:55] LABS: Calcium 8.5 MG/DL (8.5-10.1); Osmolality,Calculated 286.7 MOS/KG (273-304)
[2019-04-30] MEDS: IPRATROPIUM 500 MCG/2.5 ML NEB RESP TX SCH ×2 (07:13→10:42)
[2019-04-30 07:37] VITALS: BP 150/66
[2019-04-30] MEDS: carvediloL 12.5 MG TABLET PO SCH (11:34)
[2019-04-30] MEDS: ASPIRIN EC 81 MG TABLET PO SCH (11:34)
[2019-04-30] MEDS: VERAPAMIL 80 MG TABLET PO SCH (11:34)
[2019-04-30] MEDS: ONDANSETRON ODT 4 MG TABLET PO SCH ×2 (11:34→11:37)
[2019-04-30] MEDS: CYPROHEPTADINE 4 MG TABLET PO SCH (11:34)
[2019-04-30] MEDS: MEMANTINE 10 MG TABLET PO SCH (11:35)
[2019-04-30] MEDS: FLUCONAZOLE 100 MG TABLET PO SCH (11:35)
[2019-04-30] MEDS: MONTELUKAST 10 MG TABLET PO SCH (11:35)
[2019-04-30] MEDS: THEOPHYLLINE ER 300 MG TABLET PO SCH (11:35)
[2019-04-30] MEDS: PANTOPRAZOLE 40 MG TABLET PO SCH (11:35)
[2019-04-30] MEDS: buPROPion SR 150 MG TABLET PO SCH (11:35)
[2019-04-30] MEDS: BACLOFEN 10 MG TABLET PO SCH (11:35)
[2019-04-30] MEDS: MAGNESIUM CHLORIDE 64 MG TABLET PO SCH (11:35)
[2019-04-30] MEDS: POTASSIUM CHLORIDE 20 MEQ TABLET PO SCH (11:35)
[2019-05-01] MEDS ORDERED: ERGOCALCIFEROL 50,000 UNIT CAPSULE PO SCH (09:00)
== END 2019-04-30 11:35 | disposition swing bed (61) ==
LOC: EDBD → EDUNIT# → N.ED 18:08 → N.EDINP 18:08 → N.2E 04-28 00:19
PROVIDERS: ADMIT Internal Medicine; ATTEND Internal Medicine